=== PATIENT | female | born 1965 | race Caucasian/White ===

== ENCOUNTER 2017-09-05 15:13 | Emergency (ER) | payer BC ==
[2017-09-05 17:31] VITALS: BP 127/77
--- NOTE | 2017-09-05 17:51 | UC ---
Shoulder Pain HPI - HPI Summary HPI Summary: Patient has had severe right shoulder pain for 24 hours. does not remember any trauma or injury, injured her left shoulder a few months ago and has been using her right arm a lot more. no deformity noted - History of Current Complaint Chief Complaint: UCUpperExtremity Stated Complaint: RIGHT SHOULDER PAIN Time Seen by Provider: 09/05/17 17:28 Hx Obtained From: Patient Hx Last Menstrual Period: n/a ?: No Onset/Duration: Sudden Onset, Lasting Hours Timing: Constant Location Of Pain: Is Diffuse - over right shoulder Character: Aching, Stiffness Aggravating Factor(s): Movement - Allergies/Home Medications Allergies/Adverse Reactions: Allergies Allergy/AdvReac Type Severity Reaction Status Date / Time Cephalexin [From Keflex] Allergy Intermediate Hives Verified 09/05/17 17:32 PMH/Surg Hx/FS Hx/Imm Hx Previously Healthy: Yes - Surgical History Surgical History: Yes Surgery Procedure, Year, and Place: uterine ablation. gallbladder 2009. 2 c- sections - Family History Known Family History: Positive: None Negative: Cardiac Disease, Hypertension - Social History Alcohol Use: Occasionally Substance Use Type: None Smoking Status (MU): Never Smoked Tobacco Review of Systems Constitutional: Negative Skin: Negative Eyes: Negative ENT: Negative Respiratory: Negative Cardiovascular: Negative Gastrointestinal: Negative Genitourinary: Negative Motor: Negative Neurovascular: Negative Musculoskeletal: Arthralgia, Decreased ROM, Myalgia Neurological: Negative Is Patient Immunocompromised?: No All Other Systems Reviewed And Are Negative: Yes Physical Exam Triage Information Reviewed: Yes Appearance: Well-Appearing, Well-Nourished, Pain Distress Vital Signs: Initial Vital Signs Temp 97.6 F 09/05/17 17:25 Pulse 65 09/05/17 17:25 Resp 14 09/05/17 17:25 BP 127/77 09/05/17 17:25 Pulse Ox 100 09/05/17 17:25 Vital Signs Reviewed: Yes Eye Exam: Normal ENT Exam: Normal Dental Exam: Normal Neck exam: Normal Respiratory Exam: Normal Cardiovascular Exam: Normal Abdominal Exam: Normal Bowel Sounds: Positive: Present Musculoskeletal: Positive: Strength Intact, ROM Intact - in alldirections, No Edema Neurological Exam: Normal Psychological Exam: Normal Skin Exam: Normal Shoulder Course/Dx - Course Course Of Treatment: hx obtained, exam performed ,meds reviewed, xray obtained. sling and toradol given. referred to Ortho. - Differential Dx/Diagnosis Differential Diagnosis/HQI/PQRI: Dislocation, Rotator Cuff Injury, Sprain, Strain, Tendonitis Provider Diagnoses: tendonitis of the right shoulder Discharge - Discharge Plan Condition: Stable Disposition: HOME Prescriptions: Meloxicam(NF) [Mobic(NF)] 7.5 mg PO BID #28 tab Patient Education Materials: Calcific Tendinitis (ED) Referrals: Ld Lopez MD [Primary Care Provider] - Eliel Resendez MD [Medical Doctor] - Additional Instructions: 1. you were given a shot of toradol tonight. 2. Start tht Meloxicam in the morning. 3. follow up with Dr resendez office.
--- NOTE | 2017-09-05 18:12 | RAD ---
INDICATION: Right shoulder pain. TECHNIQUE: 4 views of the right shoulder were obtained. FINDINGS: The bones are in normal alignment. No fracture is seen. There are small calcifications adjacent to the superior lateral aspect of the humeral head suggestive of calcific tendinitis. There is mild osteoarthritic change in the glenohumeral joint. IMPRESSION: FINDINGS SUGGESTIVE OF CALCIFIC TENDINITIS.
[2017-09-05] MEDS ORDERED: Ketorolac INJ* 60 MG/2 ML VIAL IM ONE (18:23)
== END 2017-09-05 18:46 | disposition home or self-care (01) ==
LOC: UCCORT 15:13
DX: M65.811 Other synovitis and tenosynovitis, right shoulder (principal); Z88.1 Allergy status to other antibiotic agents
CPT/HCPCS: 96372; 99213; G0463; J1885

== ENCOUNTER 2017-12-14 14:02 | Emergency (ER) | payer BC ==
--- OUTSIDE RECORDS SUMMARY | 2017-12-14 14:25 | XMS REPORT ---
:1965 External Reference #:[id number] Author Organization [facility] Address [address] [address] Phone [phone] Care Team Providers Name Role Phone Ld Lopez MD Primary Care Physician Unavailable Payers Type Date Identification Numbers Payment Provider Subscriber Commercial Policy Number: [id number] [employer] Jayde Singh PayID: [id number] [address] [address] [place] [address] Workers Compensation Onset: 2016 Policy Number: Kaleb Singh [id number] Group Number: [id number] [address] Group Name: Laurent [phone] [place] [address] PayID: [id number] Workers Compensation Expires: 2017 Policy Number: Kaleb Singh [id number] Onset: 2016 PayID: [id number] [address] [place] [address] Problems Description No Information Family History Date Family Member(s) Problem(s) Comments General Heart Disease General Hypertension General Cancer Father Coronary Artery Disease (CAD) Mother due to Breast Cancer () Social History Type Date Description Comments Marital Status 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 Cigarette Use Never Smoked Cigarettes ETOH Use Occasionally consumes alcohol Recreational Drug Use Denies Drug Use Smoking Patient has never smoked Daily Caffeine Consumes on average 2 cups of regular coffee per day Daily Caffeine Consumes on average 8oz of iced tea per day Daily Caffeine consumes 8oz of chocolate per day Exercise Type/Frequency Exercises sporadically Allergies, Adverse Reactions, Alerts Date Description Reaction Status Severity Comments 03/09/2017 Cephalexin active 09/08/2017 Seasonal active Medications Medication Date Status Form Strength Qnty SIG Indications Ordering Provider Zofranali 00// Active Tablets 4mg take 1 by Unknown 0000 mouth twice a day as needed for nausea Duloxetine HCL / Active Caps DR 60mg 1 by mouth Unknown 0000 Part every day Buspirone HCL / Active Tablets 10mg take 1 by Unknown 0000 mouth two times a day Oxybutynin / Active Tablets ER 10mg 1 by mouth Unknown Chloride ER 0000 24HR every day Proair HFA / Active Aerosol 108(90Base 2 puffs by Unknown 0000 ) mcg/Act mouth every 4 hours as needed Multivitamins / Active Capsules 1 by mouth Unknown 0000 every day Vitamin D2 / Active Tablets 2000Unit 1 by mouth Unknown 0000 everyday Qvar / Active Aerosol 40mcg/Act 2 puff Unknown 0000 twice a day prn Metaxalone / Active Tablets 800mg take 1 Unknown 0000 tablet 3 times a day as needed Toprol XL / Active Tablets ER 25mg 1 by mouth Unknown 0000 24HR every day Loratadine / Active Capsules 10mg 1 by mouth Unknown 0000 every night at bedtime Ibuprofen / Active Tablets 800mg by mouth Unknown 0000 three times a day as needed Meloxicam / Active Tablets 7.5mg 1 po bid Unknown 0000 Lorazepam / Active Tablets 2mg 1/2 to 1 Digiovanna 0000 tab po , Ld, bid prn MD Joya / Active Powder [id number] Wash And Unknown 0000 /GM Dry Skin Then Apply Three Times A Day To Skin Fold Rash Unti Fluocinonide / Active Ointment 0.05% applies to Antwan, 0000 affected MD Alberto area prn Triamcinolone / Active Cream 0.5% applies to Digiovanna Acetonide 0000 affected , area prn SHANDA Eisenberg Lorazepam / Hx Tablets 2mg 1 tab Unknown 0000 - every 6 10/09/ hours up 2016 to three times daily as needed for flying Omeprazole 00/00/ Hx Capsules 20mg 1 by mouth Unknown 0000 - DR every day 2016 Ibuprofen /00/ Hx Capsules 200mg as needed Unknown 0000 - 2016 Metoprolol / Hx Tablets ER 25mg Digiovanna Succinate ER 0000 - 24HR , Ld 2016 Medications Administered in Office Medication Date Status Form Strength Qnty SIG Indications Ordering Provider Depomedrol Administered Injection Tyra 40MG 018 Jordana Betancourt Celestone 3 Administered Injection Eliel M mg and 3mg 017 MD Mal Celestone 3 Administered Injection Eliel M mg and 3mg 017 MD Mal Vital Signs Date Vital Result Comment 12/02/2017 Height 68 inches 5'8" Body Temperature 97.8 F Pain Level 0 10/22/2017 Height 68 inches 5'8" Weight 263.00 lb w/ shoes Heart Rate 66 /min reg BP Systolic Sitting 128 mmHg Rue, lg cuff BP Diastolic Sitting 86 mmHg Rue, lg cuff Respiratory Rate 16 /min Body Temperature 97.1 F tympanic Pain Level 5 left arm BMI (Body Mass Index) 40.0 kg/m2 09/08/2017 Height 68 inches 5'8" Heart Rate 67 /min BP Systolic Sitting 120 mmHg BP Diastolic Sitting 76 mmHg Respiratory Rate 16 /min Pain Level 3 O2 % BldC Oximetry 97 % 09/02/2017 Height 68 inches 5'8" Weight 257.00 lb Heart Rate 64 /min BP Systolic 125 mmHg BP Diastolic 84 mmHg Body Temperature 97.2 F BMI (Body Mass Index) 39.1 kg/m2 06/17/2017 Height 66.25 inches 5'6.25" Weight 240.00 lb Heart Rate 76 /min BP Systolic 126 mmHg BP Diastolic 76 mmHg Respiratory Rate 16 /min BMI (Body Mass Index) 38.4 kg/m2 05/14/2017 Height 66.25 inches 5'6.25" Weight 240.00 lb Heart Rate 74 /min BP Systolic 124 mmHg BP Diastolic 74 mmHg Respiratory Rate 16 /min Pain Level 4 did not take ibu BMI (Body Mass Index) 38.4 kg/m2 03/09/2017 Height 66.25 inches 5'6.25" Weight 253.00 lb Heart Rate 76 /min BP Systolic 114 mmHg BP Diastolic 82 mmHg Respiratory Rate 20 /min Pain Level 4 BMI (Body Mass Index) 40.5 kg/m2 Results Description No Information Procedures Date CPT Code Description Status 09/08/2017 Inject/Drain Joint/Bursa Major Completed 05/14/2017 Injection Single Tendon Origin/Insertion Completed 12/04/2016 41516 Nerve Conduction, Sensory Completed 12/04/2016 84898 Nerve Conduction, Motor W/F-Wave Study Completed 12/04/2016 47524 Needle Electromyography Complete, Five Or More Muscles Completed Studied Encounters Type Date Location Provider CPT E/M Dx Office Visit 10/22/2017 [facility] Tyra Betancourt, [address] W54.0xxD 9:30a [facility] S51.852D Office Visit 09/08/2017 11:30a [place] [address] M75.31 Of [facility] Office Visit 09/02/2017 3:00p [facility] Tyra Betancourt [address] S51.852A Of [facility] W54.0xxA S51.832S Office Visit 06/17/2017 11:30a [place] [address] S51.832S Of [facility] W54.0xxS M79.622 Office Visit 05/14/2017 10:30a [place] [address] S51.832D Of [facility] W54.0xxD M79.632 Office Visit 03/09/2017 11:00a [place] [address] S51.832S Of [facility] W54.0xxS M79.632 Plan of Care 10/22/2017 - Tyra Betancourt M.D.W54.0xxD Bitten by dog, subsequent encounterFollow up:Follow up: after testing is [id number] Open bite of left forearm, subsequent encounter
[2017-12-14 14:27] VITALS: BP 118/82
--- NOTE | 2017-12-14 14:32 | UC ---
Throat Pain/Nasal Ramos HPI - HPI Summary HPI Summary: Pt presents to with congestion, sore throat, cough and wheeze. 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 Pt with exposure to flu and RSV. Pt states has been feeling tight cough and wheeze in chest. Pt has used albuterol MDI with improvement. Pt has also tried OTC Theraflu, Sudafed. No fevers, chills, rash. No PURCELL, vision changes. + congestion + sore throat + pnd + ear congestion L>R Pt did get flu vaccine this year Never hospitalized for asthma. Last pred > 1 year Pt's medications reviewed this visit - History of Current Complaint Chief Complaint: UCRespiratory Stated Complaint: COUGH CONGESTION SORE THROAT Time Seen by Provider: 12/14/17 14:30 Hx Obtained From: Patient Hx Last Menstrual Period: n/a Cough: Nonproductive Associated Signs & Symptoms: Positive: Wheezing, Sinus Discomfort, Nasal Discharge - Allergies/Home Medications Allergies/Adverse Reactions: Allergies Allergy/AdvReac Type Severity Reaction Status Date / Time Cephalexin [From Keflex] Allergy Intermediate Hives Verified 12/14/17 14:26 Home Medications: Home Medications DULoxetine DR CAP* [Cymbalta CAP*] 60 mg PO DAILY 12/14/17 [History Confirmed ] PMH/Surg Hx/FS Hx/Imm Hx Previously Healthy: Yes Respiratory History: Asthma - Surgical History Surgical History: Yes Surgery Procedure, Year, and Place: uterine ablation. gallbladder 2009. 2 c- sections - Family History Known Family History: Positive: None Negative: Cardiac Disease, Hypertension - Social History Alcohol Use: Occasionally Substance Use Type: None Smoking Status (MU): Never Smoked Tobacco Review of Systems ENT: Ear Ache, Nasal Discharge, Sinus Congestion Respiratory: Cough All Other Systems Reviewed And Are Negative: Yes Physical Exam Triage Information Reviewed: Yes Appearance: Well-Appearing, No Pain Distress, Well-Nourished Vital Signs: Initial Vital Signs Temp 98.3 F 12/14/17 14:21 Pulse 72 12/14/17 14:21 Resp 18 12/14/17 14:21 BP 118/82 12/14/17 14:21 Pulse Ox 99 12/14/17 14:21 Vital Signs Reviewed: Yes Eye Exam: Normal Eyes: Positive: Conjunctiva Clear ENT Exam: Normal ENT: Positive: Hearing grossly normal, Pharyngeal erythema, Nasal congestion, Uvula midline, Other - mild fluid left ear no fluid right no erythema, no retraction. Negative: Sinus tenderness Dental Exam: Normal Neck exam: Normal Neck: Positive: Supple, Nontender, No Lymphadenopathy Respiratory Exam: Normal Respiratory: Positive: Chest non-tender, No respiratory distress, No accessory muscle use, Wheezing, Other: - few, scattered wheeze, no rhonchi intermittent coarse cough no accessory muscle use no retractions. Negative: Respiratory distress Cardiovascular Exam: Normal Cardiovascular: Positive: RRR, No Murmur, Pulses Normal Abdominal Exam: Normal Abdomen Description: Positive: Nontender, No Organomegaly, Soft Bowel Sounds: Positive: Present Musculoskeletal Exam: Normal Musculoskeletal: Positive: Strength Intact Neurological Exam: Normal Neurological: Positive: Alert Psychological Exam: Normal Psychological: Positive: Normal Response To Family Skin Exam: Normal Re-Evaluation - Re-Evaluation First Eval Comment: neg influenza, rsv, strep. hydrate. secretion precautions. abx. mdi /albuterol. pred. floanse. work note Throat Pain/Nasal Course/Dx - Course Course Of Treatment: Pt presents with 3-4 days progressive cough, wheeze, congestion. Little relief with OTC meds. will check for flu, strep and RSV given exposures. pending results: tamiflu vs abx for strep. refill albuterol nebules. flonase. pred. return precautions. secretion precaution - Differential Dx/Diagnosis Provider Diagnoses: cough, wheeze Discharge - Discharge Plan Condition: Stable Disposition: HOME Prescriptions: Albuterol 2.5MG/3ML (0.083%)* [Ventolin 2.5 MG/3 ML NEB.JERILYN*] 2.5 mg INH Q4H # 30 neb.jerilyn Azithromycin TAB* [Zithromax TAB (Z-ALEC) 250 mg #6 tabs] 2 tab PO .TODAY, THEN 1 DAILY #1 alec Fluticasone NASAL SPRAY 50MCG* [Flonase NASAL SPRAY 50MCG*] 2 spray BOTH NARES DAILY #1 btl predniSONE TAB* [Deltasone TAB*] 50 mg PO DAILY #5 tab Patient Education Materials: Acute Bronchitis (ED) Forms: *Work Release Referrals: Ld Lopez MD [Primary Care Provider] - Additional Instructions: - Stay well hydrated. Drink plenty of non-alcoholic, non-caffinated beverages - take antibiotics 2 times a day as prescribed - USe inhaler or nebulizer- 2 puffs every 4 hours today, then every 4 hours as needed - Take prednisone once daily x 5 days - Okay to use nasal spray as prescribed - swish and spit to clean mouth following nasal spray - Okay to use over the counter medication for cough - After you have been on antibiotics for 2 days - change your toothbrush and your pillowcase. These infections are spread by secrtions - do NOT share eating or drinking utensils - clean items you share with other people such as iphone, computer mouse, TV remote, etc - humidify the air in the room where you sleep - boil water, run hot steam shower, cups of water by heat vent - Alternate ibuprofen (Advil, motrin) 600mg and tylenol every 3 hours for pain or fever. - Call your doctor or return with any questions or concerns
== END 2017-12-14 15:32 | disposition home or self-care (01) ==
LOC: UCCORT 14:02
DX: R05 Cough (principal); R06.2 Wheezing; Z72.89 Other problems related to lifestyle; J45.909 Unspecified asthma, uncomplicated
CPT/HCPCS: 87502; 87651; 99212; G0463

== ENCOUNTER 2018-01-20 15:25 | Emergency (ER) | payer BC ==
--- NOTE | 2018-01-20 16:55 | RAD ---
INDICATION: Pain and swelling. COMPARISON: None TECHNIQUE: Duplex interrogation of the right lowerextremity was performed. FINDINGS: Deep veins: The common femoral, great saphenous, profunda femoris, proximal, mid, and distal deep femoral, popliteal, posterior tibial, and peroneal veins are patent. There is normal compressibility, augmentation, and phasic flow. Superficial veins: There are no findings of superficial thrombophlebitis. Popliteal fossa:There is no evidence of a popliteal cyst. Soft tissues:There are no soft tissue abnormalities. IMPRESSION: Normal examination. No evidence of deep venous thrombosis
[2018-01-20 17:53] VITALS: BP 157/101
--- NOTE | 2018-01-20 18:13 | ED ---
Lower Extremity - HPI Summary HPI Summary: Patient is an otherwise healthy 51-year-old female who presents to the ED with pain in the right lower extremity most involving the calf and swelling to the right ankle. She denies any injury. History of varicose veins and has had this type of pain before, but this was sudden in onset. She endorses slight swelling, but denies any erythema or warmth. Denies numbness, tingling. Denies chest pain, shortness of breath, headache, dizziness. She denies any recent travel, OCP use or smoking history. Symptoms are aggravated by nothing and relieved with nothing. - History of Current Complaint Chief Complaint: EDExtremityLower Stated Complaint: RT LEG AND FT PAIN/SWOLLEN Time Seen by Provider: 01/20/18 15:52 Hx Obtained From: Patient Hx Last Menstrual Period: n/a Onset of Pain: Immediate Onset/Duration: Hours Severity Initially: Moderate Severity Currently: Moderate Pain Intensity: 7 Pain Scale Used: 0-10 Numeric Timing: Constant Location: Is Discrete @ - Right lower extremity Character Of Pain: Aching Associated Signs And Symptoms: Positive: Swelling. Negative: Redness, Bruising , Fever, Weakness, Dizziness Aggravating Factor(s): Standing, Ambulation, Movement, Weight Bearing Alleviating Factor(s): Rest Able to Bear Weight: Yes - Risk Factors Gout Risk Factors: Negative DVT Risk Factors: Negative Septic Arthritis Risk Factor: Negative - Allergies/Home Medications Allergies/Adverse Reactions: Allergies Allergy/AdvReac Type Severity Reaction Status Date / Time cephalexin [From Keflex] Allergy Intermediate Hives Verified 01/20/18 15:31 PMH/Surg Hx/FS Hx/Imm Hx Previously Healthy: Yes Respiratory History: Reports: Hx Asthma - Surgical History Surgery Procedure, Year, and Place: uterine ablation. gallbladder 2009. 2 c- sections - Immunization History Hx Pertussis Vaccination: No Immunizations Up to Date: Unable to Obtain/Confirm Infectious Disease History: No Infectious Disease History: Denies: Hx Clostridium Difficile, Hx Hepatitis, Hx Human Immunodeficiency Virus (HIV), Hx of Known/Suspected MRSA, Hx Shingles, Hx Tuberculosis, Hx Known/ Suspected VRE, Hx Known/Suspected VRSA, History Other Infectious Disease, Traveled Outside the [place] in Last 30 Days - Family History Known Family History: Positive: None Negative: Cardiac Disease, Hypertension - Social History Occupation: Employed Full-time Lives: With Family Alcohol Use: Occasionally Hx Substance Use: No Substance Use Type: Reports: None Hx Tobacco Use: No Smoking Status (MU): Never Smoked Tobacco Do You Chew or Dip Tobacco: No Have You Chewed or Dipped Tobacco in the LAST YEAR: No Review of Systems Constitutional: Negative Negative: Fever, Chills, Fatigue, Skin Diaphoresis ENT: Negative Gastrointestinal: Negative Genitourinary: Negative Positive: no symptoms reported, see HPI Positive: Myalgia - should watch the cadaver pain is Skin: Negative Neurological: Negative All Other Systems Reviewed And Are Negative: Yes Physical Exam Triage Information Reviewed: Yes Vital Signs On Initial Exam: Initial Vitals Temp Pulse Resp BP Pulse Ox 98.7 F 79 16 137/104 97 01/20/18 15:27 01/20/18 15:27 01/20/18 15:27 01/20/18 15:27 01/20/18 15:27 Vital Signs Reviewed: Yes Appearance: Positive: Well-Appearing, Well-Nourished Skin: Positive: Skin Color Reflects Adequate Perfusion Head/Face: Positive: Normal Head/Face Inspection Eyes: Positive: EOMI, BEN, Conjunctiva Clear Neck: Positive: Supple, No Lymphadenopathy Respiratory/Lung Sounds: Positive: Clear to Auscultation, Breath Sounds Present Cardiovascular: Positive: RRR, Pulses are Symmetrical in both Upper and Lower Extremities Musculoskeletal: Positive: Normal, Strength/ROM Intact Neurological: Positive: Speech Normal Psychiatric: Positive: Normal, Affect/Mood Appropriate - On the Diagnostics - Vital Signs Vital Signs Temp Pulse Resp BP Pulse Ox 01/20/18 17:51 98.3 F 60 16 157/101 97 01/20/18 15:27 98.7 F 79 16 137/104 97 - Laboratory Lab Statement: Any lab studies that have been ordered have been reviewed, and results considered in the medical decision making process. Lower Extremity Course/Dx - Course Course Of Treatment: During Eyes Were Drawn the course of treatment patient is evaluated for a possible right lower extremity DVT. On ultrasound there was no evidence of DVT or other findings. Patient is made aware and is okay with discharge. I've advised she use moist heat to the back of the leg as well as stretches. I have given her referral to our vascular physician Dr. Rainey to which she is going to make an appointment. She denies any other concerns at this time is okay for discharge. - Diagnoses Differential Diagnosis/HQI/PQRI: Positive: DVT Provider Diagnoses: Muscle cramp Discharge - Discharge Plan Condition: Stable Disposition: HOME Patient Education Materials: Leg Cramps (ED) Referrals: Ld Lopez MD [Primary Care Provider] - Anthony Rainey MD [Medical Doctor] - Additional Instructions: If you continue to have leg cramps, add magnesium glycinate 400 mg at bedtime Moist heat to the area Ibuprofen 600 mg 3 times daily
== END 2018-01-20 17:56 | disposition home or self-care (01) ==
LOC: ED 15:25
DX: R25.2 Cramp and spasm (principal)
CPT/HCPCS: 99282

== ENCOUNTER 2018-06-02 18:26 | Emergency (ER) | payer BC ==
[2018-06-02 19:17] VITALS: BP 122/90
--- NOTE | 2018-06-02 19:29 | UC ---
Knee Pain HPI - HPI Summary HPI Summary: Pt c/o right knee pain after doing twisting motion with left leg stationary and then heard a "pop" and onset of pain. Pt states that pain worsens with certain movements such as walking up stairs and prolonged standing. - History of Current Complaint Chief Complaint: UCLowerExtremity Stated Complaint: RIGHT KNEE INJURY Time Seen by Provider: 06/02/18 19:10 Hx Obtained From: Patient Hx Last Menstrual Period: n/a ?: No Onset/Duration: Sudden Onset, Lasting Days, Worse Since - onset Severity Initially: Moderate Severity Currently: Moderate Pain Intensity: 7 Character: Sharp - with certain movements, Dull, Aching Aggravating Factor(s): Weight Bearing, Prolonged Standing, Stairs Alleviating Factor(s): Rest, Position Associated Signs And Symptoms: Positive: Swelling Able to Bear Weight: Yes - Risk Factors Septic Arthritis Risk Factor: Negative Gout Risk Factor: Age ^ 39, Obesity - Allergies/Home Medications Allergies/Adverse Reactions: Allergies Allergy/AdvReac Type Severity Reaction Status Date / Time cephalexin [From Keflex] Allergy Intermediate Hives Verified 01/20/18 15:31 Home Medications: Home Medications Albuterol inh POWDER (NF) [Proair Respiclick] 1 puff INH DAILY 06/02/18 [ History Confirmed 06/02/18] Beclomethasone 40 MCG MDI(NF) [Qvar 40 MCG MDI(NF)] 2 puff INH DAILY 06/02/18 [ History Confirmed 06/02/18] PMH/Surg Hx/FS Hx/Imm Hx Previously Healthy: Yes - Surgical History Surgical History: Yes Surgery Procedure, Year, and Place: uterine ablation. gallbladder 2009. 2 c- sections - Family History Known Family History: Positive: None Negative: Cardiac Disease, Hypertension - Social History Occupation: Employed Full-time Lives: With Family Alcohol Use: Occasionally Substance Use Type: None Smoking Status (MU): Never Smoked Tobacco Have You Smoked in the Last Year: No Review of Systems Constitutional: Negative Skin: Negative Eyes: Negative ENT: Negative Respiratory: Negative Cardiovascular: Negative Gastrointestinal: Negative Genitourinary: Negative Motor: Negative Neurovascular: Negative Musculoskeletal: Arthralgia - right knee, Edema - right knee, Myalgia Neurological: Negative Psychological: Negative Is Patient Immunocompromised?: No All Other Systems Reviewed And Are Negative: Yes Physical Exam Triage Information Reviewed: Yes Appearance: Well-Appearing Vital Signs: Initial Vital Signs Temp 97.8 F 06/02/18 19:10 Pulse 83 06/02/18 19:10 Resp 16 06/02/18 19:10 BP 122/90 06/02/18 19:10 Pulse Ox 100 06/02/18 19:10 Vital Signs Reviewed: Yes Eye Exam: Normal ENT: Positive: Hearing grossly normal Dental Exam: Normal Neck exam: Normal Respiratory: Positive: Normal breath sounds, No respiratory distress Musculoskeletal Exam: Other Musculoskeletal: Positive: Other: - negative drawer test, slight laxity with valgus and varus test right knee Neurological Exam: Normal Psychological Exam: Normal Skin Exam: Normal Knee Pain Course/Dx - Differential Dx/Diagnosis Differential Diagnosis/HQI/PQRI: Internal Derangement Of Knee, Sprain, Strain Provider Diagnoses: right knee pain Discharge - Sign-Out/Discharge Documenting (check all that apply): Patient Departure - Discharge Plan Condition: Stable Disposition: HOME Patient Education Materials: Knee Pain (ED) Referrals: Ld Lopez MD [Primary Care Provider] - If Needed Eliel Resendez MD [Medical Doctor] - If Needed - Billing Disposition and Condition Condition: STABLE Disposition: Home
== END 2018-06-02 19:38 | disposition home or self-care (01) ==
LOC: UCCORT 18:26
DX: M25.561 Pain in right knee (principal); R60.0 Localized edema; Z88.1 Allergy status to other antibiotic agents
CPT/HCPCS: 99211; G0463

== ENCOUNTER 2018-11-23 12:50 | Emergency (ER) | payer BC ==
[2018-11-23 13:03] VITALS: BP 134/90
--- OUTSIDE RECORDS SUMMARY | 2018-11-23 13:14 | XMS REPORT ---
:1965 Author Organization [facility] Address [address] [place] [address] Care Team Providers Name Role Phone Nessa Bolaños Unavailable Unavailable PROBLEMS Type Condition ICD9-CM Code SMT04-NQ Code Onset Condition SNOMED Code Dates Status Problem Excessive and N92.0 Active 728832620 frequent menstruation with regular cycle Problem Body mass index Z68.41 Active 912676812 (BMI) 40.0-44.9, adult Problem Menopausal and N95.1 Active 384151143 female climacteric states Problem Family history of Z80.3 Active 482711832 malignant neoplasm of breast ALLERGIES Substance Reaction Event Type Date Status Keflex hives Drug Allergy Oct, Active ENCOUNTERS Encounter Location Date Diagnosis [facility] [address] Oct, [place]BGYN [place], [place] [id number] [facility] 103 Oct, [place]BG[place] [id number] [facility] 103 Aug, [place]BG[place] [id number] [facility] 103 Jun, [place] [id number] [facility] 103 Jun, [place], [place] [id number] [facility] 103 May, [place] [id number] [facility] 103 May, [place] [id number] [facility] May, [place] [id number] [facility] 103 May, Family history of malignant [facility] neoplasm of breast Z80.3 [place], [place] [id number] [facility] May, [place] [id number] [facility] 103 March, [place] [id number] [facility] 103 March, Secondary amenorrhea N91.1 [facility] and Family history [place], [place] [id number] malignant neoplasm of breast Z80.3 [facility] 103 March, Secondary amenorrhea N91.1 [facility] ; Body mass index (BMI) [place], [place] [id number] 40.0-44.9, adult Z68.41 and Excessive and frequent menstruation with regular cycle N92.0 [facility] Feb, [place], [place] [id number] [facility] 103 Nov, [place] [id number] [facility] 103 Nov, Secondary amenorrhea N91.1 [facility] and Morbid (severe) obesity [place], [place] [id number] due to excess calories E66.01 [facility] 103 Nov, Menopausal and female [facility] climacteric states N95.1 ; [place], [place] [id number] Benign endometrial hyperplasia N85.01 ; Secondary amenorrhea N91.1 and Other general symptoms and signs R68.89 [facility] 103 Sep, OBG[place] [id number] [facility] 103 Aug, Secondary [facility]orrhea N91.1 [facility] and Body mass index (BMI) [place], [place] [id number] 40.0-44.9, adult Z68.41 [facility] [facility] 103 Aug, Menopausal and female [facility] climacteric states N95.1 [place], [place] [id number] and Other general symptoms and signs R68.89 [facility] [facility] 103 Aug, Family history of malignant [facility] neoplasm of breast Z80.3 ; [place], [place] [id number] Encounter for gynecological examination (general) (routine) without abnormal findings Z01.419 ; Encounter for screening mammogram for malignant neoplasm of breast Z12.31 ; Encounter for screening for malignant neoplasm of colon Z12.11 ; Menopausal and female climacteric states N95.1 and Benign endometrial hyperplasia N85.01 [place] [facility] 103 Jun, OBG[place] [id number] [facility] 103 Jun, [place]BG[place] [id number] [facility] 103 Jan, [place] [id number] [facility] 103 Jan, Family history of malignant [facility] neoplasm of breast Z80.3 [place], [place] [id number] [facility] 103 Aug, [place]BG[place] [id number] [facility] 103 Aug, [place] [id number] [facility] 103 Jun, Encounter for gynecological [facility] examination (general) [place], [place] [id number] (routine) without abnormal findings Z01.419 ; Encounter for screening mammogram for malignant neoplasm of breast Z12.31 ; Encounter for screening for malignant neoplasm of colon Z12.11 and Family history of malignant neoplasm of breast Z80.3 [facility] [facility] 103 28 Apr, [address] [facility] examination (general) [place], [place] [id number] (routine) without abnormal findings Z01.419 ; Encounter for screening mammogram for malignant neoplasm of breast Z12.31 ; Encounter for screening for malignant neoplasm of colon Z12.11 and Family history of malignant neoplasm of breast Z80.3 [place] [facility] 103 Nov, [place] [id number] [facility] 103 Jul, FAMILY HX-BREAST MALIG [facility] V16.3 [place], [place] [id number] [facility] 103 Jun, [place] [id number] [facility] [facility] 103 May, [place] [id number] [facility] 103 Dec, [place] [id number] [facility] 103 Dec, ABN CLINICAL FINDING NEC [facility] 796.4 and Body Mass Index [place], [place] [id number] 40.0-44.9, adult V85.41 [facility] 103 Dec, ABN CLINICAL FINDING NEC 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 V72.31 ; PAP SMEAR W/O ADULT MINISTRIES DIRECTOR [place], [place] [id number] EXAM V76.2 ; SCREEN MAMMOGRAM NEC V76.12 ; Nonspecific abnormal findings on examination of genitourinary organs 793.5 and Body Mass Index 40.0-44.9, adult V85.41 [facility] [facility] 103 Dec, [place]BG[place] [id number] [facility] 103 Dec, [place], [place] [id number] [facility] 103 Oct, FAMILY HX-BREAST MALIG O[facility] V16.3 [place], [place] [id number] [facility] 103 March, FAMILY HX-BREAST MALIG [facility] V16.3 and 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 DIRECTOR [place], [place] [id number] EXAMINATION V72.31 [place] [facility] 103 Jul, [place] [id number] [facility] 103 Jul, Menometrorrhagia 626.2 ; OBGYN [facility] FAMILY HX-BREAST MALIG [place], [place] [id number] V16.3 and PELVIC PAIN 625.9 [place] [facility] 103 March, Menometrorrhagia 626.2 [place] [id number] [facility] 103 March, Menometrorrhagia 626.2 [place] [id number] [facility] 103 March, Menometrorrhagia 626.2 [place] [id number] [facility] 103 Feb, [place] [id number] [facility] 103 Feb, 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 OBGYN [facility] V72.31 and Menorrhagia [place], [place] [id number] 626.2 [facility] [facility] 103 Nov, [place]BG[place], [place] [id number] [facility] 103 Nov, Menometrorrhagia 626.2 and OBGYN [facility] Enlarged uterus 621.2 [place], [place] [id number] [facility] 103 30 Jul, 2010 Menometrorrhagia 626.2 ; OBGYN [facility] Endometrial polyp 621.0 ; [place], [place] [id number] Enlarged uterus 621.2 and FAMILY HX-BREAST MALIG V16.3 [facility] [address] [place] [place] [id number] [facility] [facility] 103 Jul, Menometrorrhagia 626.2 ; OBGYN [facility] Endometrial polyp 621.0 and [place], [place] [id number] Enlarged uterus 621.2 [place] [facility] 103 May, Menometrorrhagia 626.2 ; OBGYN [facility] Endometrial polyp 621.0 and [place], [place] [id number] Enlarged uterus 621.2 [place] [facility] 103 May, Menometrorrhagia 626.2 [place] [id number] [facility] 103 May, Menometrorrhagia 626.2 [place] [id number] [facility] [facility] 103 May, Menometrorrhagia 626.2 and OBGYN [facility] Endometrial polyp 621.0 [place], [place] [id number] [facility] [facility] 103 Apr, PELVIC PAIN 625.9 and OBGYN [facility] Menometrorrhagia 626.2 [place], [place] [id number] [facility] [facility] 103 Apr, PELVIC PAIN 625.9 [place] [id number] [facility] [facility] 103 Apr, [place], [place] [id number] [facility] 103 Nov, [place], [place] [id number] [facility] 103 08 Nov, 2009 OBGYN [place] [id number] [facility] 103 May, 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 OBGYN [facility] V72.31 [place], [place] [id number] [facility] [facility] 103 14 May, 2008 OBG[place] [id number] [facility] 103 May, [place]BG[place], [place] [id number] [facility] 103 Jan, Telangiectasia, OBGYN [facility] telangiectasis 448.9 [place], [place] [id number] [facility] 103 Jan, [place] [id number] [facility] [facility] 103 Jan, [place] [id number] [facility] [facility] 103 Nov, [place] [id number] [facility] 103 Nov, [place], [place] [id number] [facility] 103 Nov, Ovarian cyst NOS 620.2 [place] [id number] [facility] [facility] 103 Oct, [place] [id number] [facility] 103 Aug, Ovarian cyst NOS 620.2 [place] [id number] [facility] 103 Aug, Ovarian cyst NOS 620.2 [place] [id number] [facility] 103 Jun, Ovarian cyst NOS 620.2 and OBGYN [facility] Polymenorrhea 626.2 [place], [place] [id number] [facility] 103 Jun, Enlarged uterus 621.2 [place], [place] [id number] [facility] [facility] 103 Jun, [place] [id number] [facility] 103 Jun, [place], [place] [id number] [facility] 103 Jun, [place] [id number] [facility] 103 Jun, 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 [facility] V72.31 ; Urinary frequency [place], [place] [id number] 788.41 and Enlarged uterus 621.2 [facility] 103 March, Telangiectasia, [facility] telangiectasis 448.9 [place], [place] [id number] IMMUNIZATIONS No Known Immunizations SOCIAL HISTORY Never Assessed REASON FOR REFERRAL FUNCTIONAL STATUS PLAN OF CARE Activity Details Pending Test SCREENING MAMMOGRAM BILATERAL Pending Test OCCULT BLOOD SCREEN 1-3 VITAL SIGNS MEDICATIONS Medication Instructions Dosage Frequency Start End Duration Status Date Date Albuterol 2 puffs Unknown inhaler metoprolol 25 mg orally once a 1 tab(s) 24h 30 day(s) Unknown day oxybutynin 10 orally once a 1 tab(s) 24h Unknown mg/24 hr day multivitamin as 1 tab 24h Unknown directed Cymbalta 60 mg orally once a 1 cap(s) 24h Unknown day Diflucan 150 mg orally once 1 tab(s) Jun, dose(s) Unknown 2017 Ativan 1 mg orally 3 times a 1 tab(s) Unknown day prn Buspar 10mg 1tab 12h Unknown PROCEDURES Procedure Date Ordered Result Body Site Broken appointment without 24 hr notice Nov 01, 2018 RESULTS No Results REASON FOR VISIT annual, Pap Insurance Providers [facility] Patient Patient Patient Patient Patient Subscriber Subscriber Subscriber Group Insurance Plan Plan Plan Plan ID Relationship Address Phone Name Date of ID Name Date of No Type Insurance Insurance Insurance Coverage to Subscriber Address Phone Name Dates Merary [phone] Abhishekus self Jayde [id number] Nnamdi [id number] 5348 [place] Cross/Blue Shield [id number] Shield [place] [phone] Excell[place] self Jayde 1965 [id number] Blue [id number] 89 Blue Singh 1 [place]/Blue [place] Cross/Blue Shield [address] Shield [place] [phone] [place] self Jayde 1965 [id number] Blue [id number] 89 Blue Singh 4 [place] Cross/Blue Shield [address] Shield [place] [phone] [place] self Jayde 1965 [id number] Blue [phone] 89 Blue Singh 8 [place] Cross/Blue Shield [address] Shield [place] [phone] [employer] [id number] Jayde 1965 [id number] Blue [id number] 89 Blue [id number]: Singh 8 Cross/Blue [place] Cross/Blue [id number]:- Shield [id number] Shield [id number] [place] [phone] [employer] self Jayde 1965 Blue 56141 89 Blue Singh 9 [place]/Blue [place] Cross/Blue Shield [id number] Shield MEDICAL (GENERAL) HISTORY Type Description Date Medical History asthma Medical History MVP - doesn't need prophyalxis Medical History HTN Medical History BRCA neg Medical History Migraines w/ aura Medical History Anxiety/Depression Surgical History Varicose veins Surgical History nasal surgery Surgical History X2 Surgical History hysteroscopy D&C polypectomy 08/01/10 Surgical History Novasure 03-28-2011 Hospitalization History see above
--- OUTSIDE RECORDS SUMMARY | 2018-11-23 13:14 | XMS REPORT | Continuity of Care Document ---
:1965 External Reference #:[id number] Author Name Sol Bolaños Care Team Providers Name Role Phone Ld Lopez MD Primary Care Physician Unavailable Payers Type Date Identification Numbers Payment Provider Subscriber Policy Number: [id number] [employer] Jayde Singh PayID: [id number] [address] [address] [place] [address] Onset: 2016 Policy Number: [id number] [employer] Jayde Singh Group Number: [id number] [address] Group Name: [id number] [phone] [place] [id number] PayID: [id number] Expires: 2017 Policy Number: [id number] ers Jayde Singh Onset: 2016 PayID: [id number] [address] [place] [address] Advance Directives Description No Information Available Problems Date Description Provider Status Onset: 09/27/2018 Morbid obesity Suma Julian M.D. Active Onset: 09/27/2018 Localized, primary osteoarthritis Suma Julian M.D. 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 Tobacco Use Start: Unknown Never Smoked Cigarettes ETOH Use Occasionally consumes alcohol Recreational Drug Use Denies Drug Use Tobacco Use Start: Unknown Patient has never smoked Smoking Status Reviewed: 10/29/18 Patient has never smoked Exercise Type/Frequency Exercises sporadically Allergies, Adverse Reactions, Alerts Date Description Reaction Status Severity Comments 03/09/2017 Cephalexin Active 09/08/2017 Seasonal Active Medications Medication Date Status Form Strength Qnty SIG Indications Ordering Provider Meloxicam 09/27/ Active Tablets 15mg 30tab 1 by mouth M17.11 2017 s every day Jordana Julian Percocet 09/27/ Active Tablets 5-325mg 60tab 1-2 tabs by M25.561 2017 s mouth q8 as Eliel, needed pain M.D. Cane 09/27/ Active Misc 1unit use for 2017 s ambulation Eliel, - severe M.D. knee oa/ pain Duloxetine HCL / Active Caps DR 60mg 1 by mouth Unknown 0000 Part every day Oxybutynin / Active Tablets 10mg 1 by mouth Unknown Chloride ER 0000 ER 24HR every day Proair HFA / Active Aerosol 108(90Bas 2 puffs by Unknown 0000 e) mouth every mcg/Act 4 hours as needed Multivitamins / Active Capsules 1 by mouth Unknown 0000 every day Vitamin D2 / Active Tablets 2000Unit 1 by mouth Unknown 0000 everyday Qvar / Active Aerosol 40mcg/Act 2 puff Unknown 0000 twice a day prn Metaxalone / Active Tablets 800mg take 1 Unknown 0000 tablet 3 times a day as needed Toprol XL / Active Tablets 25mg 1 by mouth Unknown 0000 ER 24HR every day Loratadine / Active Capsules 10mg 1 by mouth Unknown 0000 every night at bedtime Lorazepam / Active Tablets 2mg 1/2 to 1 Digiovann 0000 tab po bid a, prn MD Ld Fluocinonide / Active Ointment 0.05% applies to [place], 0000 affected elsa Dominguez prantonio KIM CBD / Active as needed Unknown 0000 for anxiety Estroven Weight / Active Capsules 1 by mouth Unknown Management 0000 daily Phendimetrazine / Active Tablets 35mg 1 by mouth Unknown Tartrate 0000 twice a day Ibuprofen 09/16/ Hx Tablets 800mg 90tab 1 by mouth Eliel Momin 2017 - s three times Marson, 09/27/ a day seferino KIM 2018 food as needed pain and swelling Lorazepam / Hx Tablets 2mg 1 tab every Unknown 0000 - 6 hours up 08/31/ to three 2017 times daily as needed for flying Zofran / Hx Tablets 4mg take 1 by Unknown 0000 - mouth twice 06/03/ a day as 2018 needed for nausea Omeprazole / Hx Capsules 20mg 1 by mouth Unknown 0000 - DR every day 2016 Buspirone HCL / Hx Tablets 10mg takes 2 Unknown 0000 - tabs by 09/23/ mouth in 2018 A.M Ibuprofen / Hx Capsules 200mg as needed Unknown 0000 - 2016 Ibuprofen / Hx Tablets 800mg 90tab 1by mouth Unknown 0000 - s three times 09/15/ a day as 2018 needed Meloxicam / Hx Tablets 7.5mg 1 po bid Unknown 0000 - 2017 Metoprolol / Hx Tablets 25mg Digiovann Succinate ER 0000 - ER 24HR a, 09/07/ Ld, 2016 MD Joya / Hx Powder [id number] Wash And Unknown 0000 - t/GM Dry Skin Apply 2018 Three Times A Day To Skin Fold Rash as needed Triamcinolone / Hx Cream 0.5% applies to Digiovann Acetonide 0000 - affected a, area prn Faina, 2018 [employer] Ibuprofen / Hx Tablets 200mg 3 tabs by Unknown 0000 - mouth as needed 2018 Medications Administered in Office Medication Date Status Form Strength Qnty SIG Indications Ordering Provider Synvisc Or Administered Injection Suma Synvisc-One Alexa Julian M.D. Injection 1 MG Synvisc Or Administered Injection Suma Synvisc-One 018 Jordana Julian Injection 1 MG Celestone 3 mg Administered Injection Eliel M and 3mg 018 MD Mal Celestone 3 mg Administered Injection Eliel M and 3mg 018 MD Mal Celestone 3 mg Administered Injection Eliel M and 3mg 017 MD Mal Celestone 3 mg Administered Injection Eliel M and 3mg 017 MD Mal Immunizations Description No Information Available Vital Signs Date Vital Result Comment 10/29/2018 1:07pm Height 66 inches 5'6" Heart Rate 72 /min BP Systolic 132 mmHg BP Diastolic 84 mmHg Respiratory Rate 18 /min Pain Level 3 10/18/2018 9:28am Height 66 inches 5'6" Weight 268.00 lb BP Systolic 124 mmHg BP Diastolic 84 mmHg Body Temperature 98.1 F BMI (Body Mass Index) 43.3 kg/m2 10/08/2018 9:13am Height 66 inches 5'6" Heart Rate 87 /min BP Systolic 138 mmHg BP Diastolic 88 mmHg Respiratory Rate 18 /min Body Temperature 97.6 F Pain Level 5 09/27/2018 4:03pm Height 66 inches 5'6" Weight 273.00 lb Heart Rate 76 /min BP Systolic 122 mmHg BP Diastolic 82 mmHg Body Temperature 98.7 F Pain Level 8 BMI (Body Mass Index) 44.1 kg/m2 09/24/2018 1:03pm Height 66 inches 5'6" Weight 255.00 lb BP Systolic Sitting 126 mmHg BP Diastolic Sitting 68 mmHg Respiratory Rate 17 /min Pain Level 7 BMI (Body Mass Index) 41.2 kg/m2 09/16/2018 10:31am Height 66 inches 5'6" Heart Rate 71 /min BP Systolic 120 mmHg BP Diastolic 92 mmHg Respiratory Rate 16 /min Pain Level 4 O2 % BldC Oximetry 99 % 06/23/2018 10:57am Height 66 inches 5'6" Weight 255.00 lb Heart Rate 72 /min BP Systolic 134 mmHg BP Diastolic 76 mmHg Respiratory Rate 12 /min Body Temperature 97.8 F Pain Level 4 BMI (Body Mass Index) 41.2 kg/m2 06/04/2018 1:27pm Height 68 inches 5'8" Heart Rate 67 /min BP Systolic 114 mmHg BP Diastolic 86 mmHg Respiratory Rate 16 /min Pain Level 6 O2 % BldC Oximetry 97 % 12/02/2017 2:35pm Height 68 inches 5'8" Body Temperature 97.8 F Pain Level 0 10/22/2017 9:41am Height 68 inches 5'8" Weight 263.00 lb w/ shoes Heart Rate 66 /min reg BP Systolic Sitting 128 mmHg Rue, lg cuff BP Diastolic Sitting 86 mmHg Rue, lg cuff Respiratory Rate 16 /min Body Temperature 97.1 F tympanic Pain Level 5 left arm BMI (Body Mass Index) 40.0 kg/m2 09/08/2017 11:42am Height 68 inches 5'8" Heart Rate 67 /min BP Systolic Sitting 120 mmHg BP Diastolic Sitting 76 mmHg Respiratory Rate 16 /min Pain Level 3 O2 % BldC Oximetry 97 % 09/02/2017 3:13pm Height 68 inches 5'8" Weight 257.00 lb Heart Rate 64 /min BP Systolic 125 mmHg BP Diastolic 84 mmHg Body Temperature 97.2 F BMI (Body Mass Index) 39.1 kg/m2 06/17/2017 11:27am Height 66.25 inches 5'6.25" Weight 240.00 lb Heart Rate 76 /min BP Systolic 126 mmHg BP Diastolic 76 mmHg Respiratory Rate 16 /min BMI (Body Mass Index) 38.4 kg/m2 05/14/2017 10:43am Height 66.25 inches 5'6.25" Weight 240.00 lb Heart Rate 74 /min BP Systolic 124 mmHg BP Diastolic 74 mmHg Respiratory Rate 16 /min Pain Level 4 did not take ibu BMI (Body Mass Index) 38.4 kg/m2 03/09/2017 11:12am Height 66.25 inches 5'6.25" Weight 253.00 lb Heart Rate 76 /min BP Systolic 114 mmHg BP Diastolic 82 mmHg Respiratory Rate 20 /min Pain Level 4 BMI (Body Mass Index) 40.5 kg/m2 Results Description No Information Available Procedures Date Code Description Status 10/29/2018 Inject/Drain Joint/Bursa Major W/O US Completed 10/18/2018 Inject/Drain Joint/Bursa Major W/O US Completed 10/08/2018 Inject/Drain Joint/Bursa Major W/O US Completed 09/16/2018 Inject/Drain Joint/Bursa Major W/O US Completed 06/04/2018 08598 Xray Knee 3 Views Completed 06/04/2018 Inject/Drain Joint/Bursa Major W/O US Completed 09/08/2017 Inject/Drain Joint/Bursa Major W/O US Completed 05/14/201700136 Injection Single Tendon Origin/Insertion Completed 12/04/2016 08566 Nerve Conduction, Sensory Completed 12/04/2016 63669 Nerve Conduction, Motor W/F-Wave Study Completed 12/04/2016 69355 Needle Electromyography Complete, Five Or More Muscles Completed Studied Encounters Type Date Location Provider Dx Diagnosis Office Visit 09/27/2018 Orthopedic Suma Julian, M17.11 Unilateral primary 3:45p [facility] osteoarthritis, right knee M25.461 Effusion, right knee M25.561 Pain in right knee E66.01 Morbid (severe) obesity due to excess calories Z68.41 Body mass index (BMI) 40.0-44.9, adult Office Visit 09/24/2018 Wilbert Momin M17.11 Unilateral primary 1:00p [facility] Resendez MD osteoarthritis, right AT [place] knee M23.41 Loose body in knee, right knee Office Visit 09/16/2018 Orthopedic Eliel Momin M17.11 Unilateral primary 10:30a [facility] Res[facility] MD osteoarthritis, right AT [place] knee M23.91 Unspecified internal derangement of right knee M25.461 Effusion, right knee Office Visit 06/23/2018 Orthopedic Tyra W54.0xxD Bitten by dog, 10:45a [facility] Betancourt subsequent C.M.A. encounter S51.852D Open bite of left forearm, subsequent encounter Office Visit 06/04/2018 1:15p Orthopedic Eliel Momin M25.461 Effusion, right [facility] MD knee AT [place] M23.91 Unspecified internal derangement of right knee M25.561 Pain in right knee Office Visit 12/02/2017 Orth[facility] Tyra W54.0xxD Bitten by dog, 2:00p [facility] Beatncourt subsequent C.M.A. encounter S51.852D Open bite of left forearm, subsequent encounter Office Visit 10/22/2017 [facility] Tyra W54.0xxD Bitten by dog, 9:30a [facility] subsequent C.M.A. encounter S51.852D Open bite of left forearm, subsequent encounter Office Visit 09/08/2017 Orthopedic Eliel Resendez, M75.31 Calcific 11:30a [facility] KIM tendinitis of AT [place] right shoulder Office Visit 09/02/2017 Wilbert Mary S51.852A Open bite of 3:00p [facility]anc[facility] left forearm, C.M.A. initial encounter W54.0xxA Bitten by dog, initial encounter S51.832S Puncture wound without foreign body of left forearm, sequela Office Visit 06/17/2017 11:30a [facility] Eliel Momin S51.832S Puncture wound [facility] Res[facility] MD without foreign AT [place] body of left forearm, sequela W54.0xxS Bitten by dog, sequela M79.622 Pain in left upper arm Office Visit 05/14/2017 10:30a Orthopedic Eliel Momin S51.832D Puncture wound [facility] MD w/o foreign AT [place] body of left forearm, subs encntr W54.0xxD Bitten by dog, subsequent encounter M79.632 Pain in left forearm Office Visit 03/09/2017 11:00a Orthopedic Eliel Momin S51.832S Puncture wound [facility] MD without foreign AT [place] body of left forearm, sequela W54.0xxS Bitten by dog, sequela M79.632 Pain in left forearm Plan of Treatment Future Appointment(s):12/01/2018 10:45 am - Suma Julian M.D. at [facility].10/29/2018 - Suma Julian M.D.M17.11 Unilateral primary osteoarthritis, right kneeFollow up:Follow up: 4 agwmrU93.461 Effusion, right kneeM25.561 Pain in right kneeE66.01 Morbid (severe) obesity due to excess calories
--- NOTE | 2018-11-23 13:27 | ED ---
Respiratory - HPI Summary HPI Summary: 53-year-old female with history of asthma presents with reports of 5 days of nasal congestion, clear nasal drainage, and postnasal drip. States approximately 3 days ago she started to develop a harsh, nonproductive, bronchospastic cough that is progressively worsened as well as intermittent wheezing and shortnes of breath. States she has had some left lower back pain especially with cough. She also notes onset of left ear pain yesterday. Symptoms associated with some mild chills. Denies fever, dysphagia, chest pain , palpitations, abdominal pain, nausea, vomiting, or diarrhea. - History of Current Complaint Chief Complaint: UCGeneralIllness Stated Complaint: SOB/ASTHMA Time Seen by Provider: 11/23/18 13:12 Hx Obtained From: Patient Pain Intensity: 4 - Allergy/Home Medications Allergies/Adverse Reactions: Allergies Allergy/AdvReac Type Severity Reaction Status Date / Time cephalexin [From Keflex] Allergy Intermediate Hives Verified 11/23/18 12:51 Home Medications: Home Medications Acetaminophen [Tylenol Extra Strength] 1,000 mg PO Q6H PRN 11/23/18 [History Confirmed 11/23/18] Cannabidiol (Cbd) Extract [Epidiolex] 3 drop PO TID 11/23/18 [History Confirmed 11/23/18] Chrom Jada/Brindal Denny [Appetite Control Tablet] 1 each PO DAILY 11/23/18 [ History Confirmed 11/23/18] Dextromethorphan Hb/Doxylamine [Nighttime Cough Liquid] 30 ml PO BEDTIME PRN 12/11 [History Confirmed 11/23/18] PMH/Surg Hx/FS Hx/Imm Hx Endocrine/Hematology History: Denies: Hx Blood Disorders, Hx Diabetes Cardiovascular History: Reports: Hx Hypertension Denies: Hx Coronary Artery Disease, Hx Deep Vein Thrombosis, Hx Embolism, Hx Pacemaker/ICD Respiratory History: Reports: Hx Asthma History: Denies: Hx Renal Disease Psychiatric History: Reports: Hx Anxiety, Hx Depression Denies: Hx Panic Disorder - Surgical History Surgery Procedure, Year, and Place: uterine ablation. gallbladder 2009. 2 c- sections. VEIN "STRIPPIN G- SOLANGE - VARICOSE VEINS Infectious Disease History: No Infectious Disease History: Denies: Hx Clostridium Difficile, Hx Hepatitis, Hx Human Immunodeficiency Virus (HIV), Hx of Known/Suspected MRSA, Hx Shingles, Hx Tuberculosis, Hx Known/ Suspected VRE, Hx Known/Suspected VRSA, History Other Infectious Disease, Traveled Outside the [place] in Last 30 Days - Family History Known Family History: Positive: Non-Contributory - Social History Occupation: Employed Full-time Lives: With Family Alcohol Use: Weekly Hx Substance Use: No Substance Use Type: Reports: None Hx Tobacco Use: No Smoking Status (MU): Never Smoked Tobacco Have You Smoked in the Last Year: No Review of Systems Positive: Chills. Negative: Fever Negative: Drainage, Erythema Positive: Sore Throat, Ear Ache, Nasal Discharge. Negative: Dental Pain Positive: Chest Pain Positive: Shortness Of Breath, Cough, Other - Wheezing Negative: Abdominal Pain, Vomiting, Diarrhea, Nausea Positive: no symptoms reported Skin: Negative Neurological: Negative All Other Systems Reviewed And Are Negative: Yes Physical Exam - Summary Physical Exam Summary: GENERAL APPEARANCE: Well developed, obese, alert and cooperative, and appears to be in no acute distress. EYES: Conjunctiva clear. No discharge. Vision is grossly intact. EARS: External auditory canals clear, hearing grossly intact. Right TM normal. Left TM with erythema. NOSE: Mild nasal congestion with moderate mucosal erythema and edema. No nasal discharge. THROAT: Mild pharyngeal erythema without tonsilar inflammation, swelling, exudate, or lesions. Oral cavity normal.Teeth and gingiva in good general condition. NECK: Neck supple, non-tender without lymphadenopathy. CARDIAC: Normal S1 and S2. No S3, S4 or murmurs. Rhythm is regular. There is no peripheral edema, cyanosis or pallor. Extremities are warm and well perfused. Capillary refill is less than 2 seconds. LUNGS: Clear to auscultation and percussion without rales, rhonchi, wheezing or diminished breath sounds. Harsh, non-productive, bronchospastic cough. ABDOMEN: Positive bowel sounds. Soft, nondistended, nontender. No guarding or rebound. No masses or hepatosplenomegally. MUSKULOSKELETAL: ROM intact to all extremities. No joint erythema or tenderness. Normal muscular development. Normal gait. SKIN: Skin normal color, texture and turgor with no lesions or eruptions Triage Information Reviewed: Yes Vital Signs On Initial Exam: Initial Vitals Temp Pulse Resp BP Pulse Ox 97.3 F 80 20 134/90 100 11/23/18 12:58 11/23/18 12:58 11/23/18 12:58 11/23/18 12:58 11/23/18 12:58 Vital Signs Reviewed: Yes Diagnostics - Vital Signs Vital Signs Temp Pulse Resp BP Pulse Ox 11/23/18 12:58 97.3 F 80 20 134/90 100 - Laboratory Lab Statement: Any lab studies that have been ordered have been reviewed, and results considered in the medical decision making process. Disposition - Course Course Of Treatment: 53-year-old female with history of asthma presents with reports of 5 days of nasal congestion, clear nasal drainage, and postnasal drip. States approximately 3 days ago she started to develop a harsh, nonproductive, bronchospastic cough that is progressively worsened as well as intermittent wheezing and shortnes of breath. States she has had some left lower back pain especially with cough. She also notes onset of left ear pain yesterday. Symptoms associated with some mild chills. Denies fever, dysphagia , chest pain, palpitations, abdominal pain, nausea, vomiting, or diarrhea. Afebrile. Vital signs stable. Exam revealed some minor nasal congestion with mucosal erythema and edema, mild pharyngeal erythema without tonsillar swelling , exudate, or cervical lymphadenopathy, left TM erythema, patient does have a nonproductive bronchospastic cough however bilateral breath sounds were clear at time of exam and remaining exam was unremarkable. Will treat for upper respiratory infection, left otitis media, and asthma exacerbation with a course of azithromycin, 3 days of prednisone, we will have her continue using her albuterol inhaler as needed, Tessalon Perles as needed for cough, fluticasone nasal spray and saline rinses for the nasal congestion. She is to follow-up with her primary care provider in 5-7 days if symptoms do not improve. Warning symptoms were reviewed with the patient. She verbalizes understanding and agrees with plan of care. - Differential Dx - Cardiopulmonary Differential Diagnoses - Cardiopulmonary: Asthma, Bronchitis, Chest Wall Pain, Influenza, Lower Resp Infection, Pleurisy - Diagnoses Provider Diagnoses: URI with cough and congestion, Left otitis media, Asthma exacerbation Discharge - Sign-Out/Discharge Documenting (check all that apply): Patient Departure All imaging exams completed and their final reports reviewed: No Studies - Discharge Plan Condition: Stable Disposition: HOME Prescriptions: Azithromyxin HERMES (NF) [Z-Hermes (Zithromax) 250 mg tabs #6] 2 tab PO .TODAY, THEN 1 DAILY #6 tab Benzonatate CAP* [Tessalon 100 MG CAP*] 100 mg PO TID PRN #30 cap PRN Reason: Cough Fluticasone NASAL SPRAY 50MCG* [Flonase NASAL SPRAY 50MCG*] 2 spray BOTH NARES DAILY #1 btl predniSONE TAB* [Deltasone 20 MG TAB*] 40 mg PO DAILY #6 tab Patient Education Materials: Asthma (ED), Upper Respiratory Infection (ED) Forms: *Work Release Referrals: Ld Lopez MD [Primary Care Provider] - 5 Days (If no improvement in symptoms) Additional Instructions: Your history and exam are consistent with an upper respiratory infection with a left ear infection and asthma exacerbation. Start azithromycin 2 tabs today then 1 tab a day for next 4 days. Take prednisone 40 mg (2 tabs) daily for next 3 days to help with the inflammation of the airways. Take Tessalon Perles 1 cap every 8 hours as needed for cough. Use your albuterol inhaler as directed. Use a saline rinse kit such as Neti Pot or NeilMed at least twice a day to help thin secretions and promote drainage of the sinuses. Use fluticasone (Flonase) nasal spray 2 sprays each nostril once daily. Take over the counter acetaminophen (Tylenol) or ibuprofen (Advil, Motrin) according to directions as needed for pain or fever. Use salt water gargles several times a day if you have a sore throat. You may also use Chloraseptic spray or Cepacol lonzenges according to directions which contain a numbing medication and can provide some temporary relief from your sore throat. Follow up with your primary care provider in 5-7 days if symptoms persist. Seek immediate medical attention in the emergency room if you have fever greater than 100.5 F despite taking acetaminophen or ibuprofen, have chest pain , difficulty breathing, persistent wheezing despite using albuterol inhaler/ nebulizer, you are unable to swallow, or have any worsening of symptoms. - Billing Disposition and Condition Condition: STABLE Disposition: Home
== END 2018-11-23 13:50 | disposition home or self-care (01) ==
LOC: UCCORT 12:50
DX: H66.92 Otitis media, unspecified, left ear (principal); R09.81 Nasal congestion; J45.901 Unspecified asthma with (acute) exacerbation; Z88.1 Allergy status to other antibiotic agents; I10 Essential (primary) hypertension; J06.9 Acute upper respiratory infection, unspecified; R05 Cough
CPT/HCPCS: 99212; G0463

== ENCOUNTER 2019-11-08 07:19 | Inpatient (IN) | payer BC ==
[~2019-11-08 07:19] MED LIST: Buffered Lidocaine 1% SYRIN* 1 ML/SYRINGE INTRADERM ONE; Famotidine IV* 10 MG/ML 2 ML (20 mg) IV ONE
--- OUTSIDE RECORDS SUMMARY | 2019-11-08 07:22 | XMS REPORT | Continuity of Care Document ---
:1965 External Reference #:[id number] Author Name Bonnie Roche NP (transmitted by agent of provider Michelle Worthy) Address [address] [place] [address] Care Team Providers Name Role Phone Ld Lopez MD - Family Care Team Information Methods Analyst Data Processing Medicine Problems Active Problems Provider Date Morbid obesity Suma Julian M.D. Onset: 09/27/2018 Localized, primary osteoarthritis Suma Julian M.D. Onset: 09/27/2018 Social History Type Date Description Comments Sex Unknown Tobacco Use Start: Unknown Never Smoked Cigarettes ETOH Use Occasionally consumes 4-5 drinks per week alcohol Recreational Drug Use Denies Drug Use Tobacco Use Start: Unknown Patient has never smoked Smoking Status Reviewed: 09/09/19 Patient has never smoked Exercise Type/Frequency Exercises sporadically Allergies, Adverse Reactions, Alerts Active Allergies Reaction Severity Comments Date Cephalexin 03/09/2017 Seasonal 09/08/2017 Medications Active Medications SIG Qnty Indications Ordering Date Provider Meloxicam 1 by mouth every 90tabs M17.11 Suma Julian, 09/27/2018 15mg Tablets day M.D. Cane use for ambulation 1units Suma Julian, 09/27/2018 Misc - severe knee oa/ M.D. pain Duloxetine HCL 1 by mouth every Unknown 60mg day Caps DR Part Oxybutynin Chloride 1 by mouth every Unknown ER day 10mg Tablets ER 24HR Proair HFA 2 puffs by mouth Unknown 108(90Base) every 4 hours as mcg/Act Aerosol needed Multivitamins 1 by mouth every Unknown Capsules day Vitamin D2 1 by mouth Unknown 2000Unit everyday Tablets Qvar 2 puff twice a day Unknown 40mcg/Act Aerosol prn Metaxalone take 1 tablet 3 Unknown 800mg times a day as Tablets needed Toprol XL 1 by mouth every Unknown 25mg Tablets day ER 24HR Loratadine 1 by mouth every Unknown 10mg night at bedtime Capsules Lorazepam 1/2 to 1 tab po Digiovanna, 2mg Tablets bid prn MD Ld CBD as needed for Unknown anxiety Estroven Weight 1 by mouth daily Unknown Management Capsules History Medications Percocet 1 qhs as needed 10tabs Tyra Betancuort, 06/06/2019 - 5-325mg for pain M.D. 09/08/2019 Tablets Gabapentin 1po day 1, 1 by 90caps Tyra Betancourt, 05/19/2019 - 300mg mouth twice a M.D. 09/08/2019 Capsules day day 2, then 1 by mouth three times a day Medications Administered in Office Medication SIG Qnty Indications Ordering Provider Date Depomedrol 40MG Tyra Betancourt M.D. 01/26/2019 Injection Synvisc Or Synvisc-One Suma Julian M.D. 10/29/2018 Injection 1 MG Injection Synvisc Or Synvisc-One Suma Julian M.D. 10/18/2018 Injection 1 MG Injection Synvisc Or Synvisc-One Suma Julian M.D. 10/08/2018 Injection 1 MG Injection Celestone 3 mg and 3mg Eliel Resendez MD 09/16/2018 Injection Celestone 3 mg and 3mg Eliel Resendez MD 06/04/2018 Injection Celestone 3 mg and 3mg Eliel Resendez MD 09/08/2017 Injection Celestone 3 mg and 3mg Eliel Resendez MD 05/14/2017 Injection Immunizations Description No Information Available Vital Signs Date Vital Result Comment 09/09/2019 9:47am Height 66 inches 5'6" Weight 279.00 lb Heart Rate 83 /min BP Systolic 125 mmHg BP Diastolic 81 mmHg O2 % BldC Oximetry 95 % BMI (Body Mass Index) 45.0 kg/m2 07/04/2019 1:29pm Height 66 inches 5'6" Weight 267.00 lb BP Systolic 130 mmHg BP Diastolic 88 mmHg Respiratory Rate 16 /min Body Temperature 97.9 F Pain Level 4 BMI (Body Mass Index) 43.1 kg/m2 Results Description No Information Available Procedures Description No Information Available Medical Devices Description No Information Available Encounters Type Date Location Provider Dx Diagnosis Office Visit 07/04/2019 [facility] Tyra Betancourt, W54.0xxD Bitten by dog, 1:30p at [facility] subsequent encounter S51.852D Open bite of left forearm, subsequent encounter Office Visit 05/19/2019 [facility]ra W54.0xxD Bitten by dog, 3:30p [facility]oped[facility] at [facility] Bet[facility]ourt subsequent [place] encounter 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 07/04/2019 S51.852D Open bite of left forearm, subsequent Tyra Betancourt M.D. encounter 05/19/2019 W54.0xxD Bitten by dog, subsequent encounter Tyra Betancourt M.D. 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 05/19/2019 S51.852D Open bite of left forearm, subsequent Tyra Betancourt M.D. encounter 05/19/2019 W54.0xxD Bitten by dog, subsequent encounter Tyra Betancourt M.D. Plan of Treatment No Information Available Functional Status Description No Information Available Mental Status Description No Information Available Referrals Description No Information Available
--- OUTSIDE RECORDS SUMMARY | 2019-11-08 07:22 | XMS REPORT | Continuity of Care Document ---
:1965 External Reference #:[id number] Author Name Kaylie Ly PA (transmitted by agent of provider Sunita Cervantes) Address [address], [address] [place] [address] Care Team Providers Name Role Phone Ld Lopez MD - Family Care Team Information Board Certified Behavioral Analyst Medicine Nessa Bolaños RNC - Women's Health Care Team Information Board Certified Behavioral Analyst Problems Active Problems Provider Date Precordial pain Bret Lind MD, PhD Onset: 01/02/2014 Palpitations Bret Lind MD, PhD Onset: 01/02/2014 Mitral valve disorder Bret Lind MD, PhD Onset: 01/02/2014 Bariatric surgery status Izabel Addison DO Onset: 09/20/2019 Adjustment disorder with mixed emotional Izabel Addison DO Onset: 2018 features Family history of breast cancer Izabel Addison DO Onset: 09/20/2019 Social History Type Date Description Comments Sex Unknown Tobacco Use Start: Unknown Never Smoked Cigarettes ETOH Use Drinks 2 Alcoholic Beverages Per Week Tobacco Use Start: Unknown Patient has never smoked Recreational Drug Use Denies Drug Use Smoking Status Reviewed: 10/07/19 Patient has never smoked Allergies, Adverse Reactions, Alerts Active Allergies Reaction Severity Comments Date Keflex 01/02/2014 Medications Active Medications SIG Qnty Indications Ordering Provider Date Oxybutynin Chloride qd Unknown Tab Metoprolol Succinate 1 tab qd Unknown 25mg Tablets Vitamin D 1 po qd Unknown 2000Unit Capsules Multivitamins 1 by mouth 90caps Unknown Capsules every day Albuterol 1 puff q4h prn Unknown Powder Ibuprofen 1 po tid for 30tabs Unknown 800mg Tablets pain CBD Oil 500MG tid Unknown Duloxetine HCL 1 cap daily Digiovanna, 60mg Caps DR Ld Mckinney MD Part Meloxicam Take One Tablet Unknown 15mg Tablets By Mouth Every Day Lorazepam tid prn Digiovanna, 2mg Tablets Ld Mckinney MD Metaxalone Take One Tablet Unknown 800mg Tablets By Mouth Three Times A Day as Needed For Muscle Spasm Vitamin B12 1 by mouth once Unknown 1000mcg Tablets a day ER Caltrate 600+D Plus 1 a day Unknown Minerals [id number] Chewtabs Immunizations Description No Information Available Vital Signs Date Vital Result Comment 10/07/2019 9:10am BP Systolic Sitting Right Arm 128 mmHg BP Diastolic Sitting Right Arm 76 mmHg Heart Rate 89 /min Respiratory Rate 16 /min Height 65.75 inches 5'5.75" Weight 281.00 lb BMI (Body Mass Index) 45.7 kg/m2 BSA (Body Surface Area) 2.30 m2 [place] body weight in kilograms 58 kg O2 % BldC Oximetry 95 % ra 09/20/2019 9:02am BP Systolic 132 mmHg BP Diastolic 80 mmHg Body Temperature 98.5 F Heart Rate 88 /min Respiratory Rate 18 /min Height 65.75 inches 5'5.75" Weight 280.00 lb BMI (Body Mass Index) 45.5 kg/m2 BSA (Body Surface Area) 2.30 m2 [place] body weight in kilograms 58 kg O2 % BldC Oximetry 96 % Pain Level 0 Results Test Acquired Date Facility Test Result H/L Range Note CBC 09/27/2019 [facility] White Blood 5.7 K/uL Normal 3.1-10.7 1 W/Automated [address] [place] [address] [phone] Red Blood Count 4.71 M/uL Normal 3.90-5.40 Hemoglobin 14.2 gm/dL Normal 11.6-15.8 Hematocrit 44.1 % Normal 36.0-46.1 Mean Cell Volume 93.6 fl Normal 80.9-99.0 Mean Corpuscular HGB 30.1 pg Normal 25.9-32.7 Mean Corpuscular HGB Conc 32.2 g/dL Normal 30.8-34.3 Platelet Count 282 K/uL Normal 155-360 Red Cell Distri Width SD 44.2 fl Normal 36-47 Red Cell Distri Width %CV 12.8 % Normal 11.7-14.4 Mean Platelet Volume 10.3 fl Normal 8.9-12.4 Neut% 65.4 % Normal 40.4-72.8 Lymph % 21.6 % Normal 20.0-42.0 Sebastian % 7.7 % Normal 4.3-13.2 Eo% 4.2 % Normal 0.0-6.6 Bas% 0.9 % Normal 0.0-1.1 Immature Grans 0.2 % Normal 0.0-5.0 NRBC % 0.0 /100WBC < 10/ 100 WBC Neut# 3.72 K/uL Normal 1.8-7.0 Lymph # 1.23 K/uL Normal 1.0-4.0 Sebastian # 0.44 K/uL Normal 0.3-0.9 Eos # 0.24 K/uL Normal 0.0-0.5 Baso # 0.05 K/uL Normal 0.0-0.1 Immature Grans Absolute 0.01 K/uL NRBC # 0.00 K/uL Comprehensive 09/27/2019 [facility] Glucose 84 mg/dL Normal 74-106 Metabolic Panel [address] [place] [address] [phone] BUN 13 mg/dL Normal 7-18 Creatinine 0.8 mg/dL Normal 0.6-1.3 Glom Filtration Rate, Estimate >60 mL/min >60 If >60 mL/min >60 2 BUN/Creat 16.2 ratio Sodium 140 mmol/L Normal 136-145 Potassium 4.0 mmol/L Normal 3.5-5.1 Chloride 108 mmol/L High 98-107 Carbon Dioxide 27 mmol/L Normal 21-32 Anion Gap 5 mEq/L Low 8-16 Calcium 8.6 mg/dL Normal 8.5-10.1 Total Protein 7.0 g/dL Normal 6.4-8.2 Albumin 3.8 g/dL Normal 3.4-5.0 Globulin 3.2 g/dL Normal 1.9-4.3 Alb/Glob 1.2 ratio Bilirubin,Total 0.4 mg/dL Normal 0.2-1.0 Sgot/Ast 16 U/L Normal 15-37 SGPT/Alt 25 U/L Normal 12-78 Alkaline Phosphatase 138 U/L High 45-117 Iron-Tibc-%Sat 09/27/2019 [facility] Serum Iron 95 g/dL Normal 50-170 [address] [place] [address] [phone] Total Iron Binding Capacity 326 g/dL Normal 250-450 Transferrin %Saturation 29 % Normal 12-57 Laboratory test 09/27/2019 [facility] Ferritin 93 ng/mL Normal 8-252 finding [address] [place] [address] [phone] Vitamin B12 And 09/27/2019 [facility] Vitamin B12 830 pg/mL Normal 193-986 Folate [address] [place], [place] [address] [phone] Folic Acid > 20.0 ng/mL High 3.1-17.5 Laboratory 09/27/2019 [facility] Vitamin 27.3 Low 30.0-100.0 3 test finding [address] D,25-Hydroxy ng/mL [place], [place] [id number] [phone] 1 Z80.3 Z98.84 F43.23 2 Note: Persistent reduction for 3 months or more in an eGFR <60 mL/min/1.73 m2 defines CKD. Patients with eGFR values >/=60 mL/min/1.73 m2 may also have CKD if evidence of persistent proteinuria is present. The original MDRD equation for estimated GFR is not valid for patients less than 18 years of age. Additional information may be found at www.kdoqi.org. 3 Vitamin D deficiency has been defined by the [place] [employer] and an Endocrine Society practice guideline as a level of serum 25-OH vitamin D less than 20 ng/mL (1,2). The Endocrine Society went on to further define vitamin D insufficiency as a level between 21 and 29 ng/mL (2). 1. IOM ([place] [employer]). 2010. Dietary reference intakes for calcium and D. [place]: The National Academies Press. 2. Vignesh MF, Tamika KHAN, Peggy PURCELL, et al. Evaluation, treatment, and prevention of vitamin D deficiency: an Endocrine Society clinical practice guideline. JCEM. 2010; 96(7):1911-30. Performed at: RN - [facility] [address] [id number] Assistant Media Planner: Lian Hurtado MD, Phone: [phone] Procedures Date Code Description Status 10/07/2019 71952 EKG-Tracing And Report Completed Medical Devices Description No Information Available Encounters Type Date Location Provider Dx Diagnosis Office Visit 10/07/2019 Cardiology Office Kaylie Ly Z01.810 Encounter for 9:00a JAVY Darling preprocedural cardiovascular examination R00.2 Palpitations Office Visit 09/20/2019 9:00a Oncology Office Azael Z80.3 Family history DO Izabel of malignant neoplasm of breast Z98.84 Bariatric surgery status F43.23 Adjustment disorder with mixed anxiety and depressed mood Assessments Date Code Description Provider 10/07/2019 Z01.810 Encounter for preprocedural cardiovascular Kaylie Ly PA examination 10/07/2019 R00.2 Palpitations Kaylie Ly PA 09/27/2019 Z80.3 Family history of malignant neoplasm of Izabel Addison, DO breast 09/27/2019 Z80.3 Family history of malignant neoplasm of Oncology Nurse breast 09/27/2019 Z98.84 Bariatric surgery status Izabel Addison, 09/27/2019 Z98.84 Bariatric surgery status Oncology Nurse 09/27/2019 F43.23 Adjustment disorder with mixed anxiety and Michele Addisont, DO depressed mood 09/27/2019 F43.23 Adjustment disorder with mixed anxiety and Oncology Nurse depressed mood 09/20/2019 Z80.3 Family history of malignant neoplasm of LdalMichelet, DO breast 09/20/2019 Z98.84 Bariatric surgery status Michele Addisont, 09/20/2019 F43.23 Adjustment disorder with mixed anxiety and Radha Addisonaret, DO depressed mood Plan of Treatment Future Appointment(s):12/09/2019 3:30 pm - Izabel Addison DO at Oncology Vfdaae5710/07/2019 - Kaylie Ly, PAZ01.810 Encounter for preprocedural cardiovascular examinationComments:As above.R00.2 PalpitationsComments:Monitor. No changes.AllFollow up:We will see the patient on a PRN basis from this point. We would be happy to see them again as deemed necessary. Functional Status Functional Condition Comment Date Status Independent with all ADL's Active Mental Status Description No Information Available Referrals Description No Information Available
--- OUTSIDE RECORDS SUMMARY | 2019-11-08 07:22 | XMS REPORT | Continuity of Care Document ---
:1965 External Reference #:[id number] Author Name Izabel Addison DO (transmitted by agent of provider Haley Ugarte) Address [address] [place] [address] Care Team Providers Name Role Phone Ld Lopez MD - Family Care Team Information Carton Wrapper [phone] Medicine Nessa Bolaños RNC - Women's Health Care Team Information Carton Wrapper Problems Active Problems Provider Date Precordial pain Bret Lind MD, PhD Onset: 01/02/2014 Palpitations Bret Lind MD, PhD Onset: 01/02/2014 Mitral valve disorder Bret Lind MD, PhD Onset: 01/02/2014 Bariatric surgery status Izabel Addison DO Onset: 09/20/2019 Adjustment disorder with mixed emotional AdelfoIzabel rosario Onset: 2018 features Family history of breast cancer Izabel Addison Onset: 09/20/2019 Social History Type Date Description Comments Sex Unknown Tobacco Use Start: Unknown Never Smoked Cigarettes ETOH Use Drinks Alcoholic Beverages Occasionally Allergies, Adverse Reactions, Alerts Active Allergies Reaction [...] A Day as Needed For Muscle Spasm Immunizations Description No Information Available Vital Signs Date Vital Result Comment 09/20/2019 9:02am BP Systolic 132 mmHg BP Diastolic 80 mmHg Body Temperature 98.5 F Heart Rate 88 /min Respiratory Rate 18 /min Height 65.75 inches 5'5.75" Weight 280.00 lb BMI (Body Mass Index) 45.5 kg/m2 BSA (Body Surface Area) 2.30 m2 [place] body weight in kilograms 58 kg O2 % BldC Oximetry 96 % Pain Level 0 02/09/2014 8:58am BP Systolic Sitting Right Arm 126 mmHg BP Diastolic Sitting Right Arm 84 mmHg Respiratory Rate 16 /min Height 66 inches 5'6" Weight 262.00 lb BMI (Body Mass Index) 42.3 kg/m2 BSA (Body Surface Area) 2.24 m2 Results Description No Information Available Procedures Description No Information Available Medical Devices Description No Information Available Encounters Description No Information Available Assessments Date Code Description Provider 09/20/2019 Z80.3 Family history of malignant neoplasm of breast Izabel Addison DO 09/20/2019 Z98.84 Bariatric surgery status Izabel Addison DO 09/20/2019 F43.23 Adjustment disorder with mixed anxiety and Izabel Addison DO depressed mood Plan of Treatment Future Appointment(s):12/09/2019 3:30 pm - Izabel Addison DO at Oncology Arcmdt1409/27/2019 7:45 am - Oncology Nurse at Oncology Spfqsg1910/07/2019 9:00 am - Kaylie Ly PA at Cardiology Office Functional Status Functional Condition Comment Date Status Independent with all ADL's Active Mental Status Description No Information Available Referrals Description No Information Available
--- OUTSIDE RECORDS SUMMARY | 2019-11-08 07:22 | XMS REPORT | Continuity of Care Document ---
:1965 External Reference #:[id number] Author Name Kaylie Ly PA (transmitted by agent of provider Adalberto Lozano) Address [address], [address] [place] [address] Care Team Providers Name Role Phone Ld Lopez MD - Family Care Team Information Brass And Wind Instrument Repairer Medicine Nessa Bolaños RNC - Women's Health Care Team Information Brass And Wind Instrument Repairer [phone] Problems Active Problems Provider Date Precordial pain [...] 600+D Plus 1 a day Unknown Minerals [id number] Chewtabs Immunizations Description No Information Available Vital Signs Date Vital Result Comment 10/07/2019 9:10am BP Systolic Sitting Right Arm 128 mmHg BP Diastolic Sitting Right Arm 76 mmHg Heart Rate 89 /min Respiratory Rate 16 /min Height 65.75 inches 5'5.75" Weight 281.00 lb BMI (Body Mass Index) 45.7 kg/m2 BSA (Body Surface Area) 2.30 m2 [place] body weight in kilograms 58 kg O2 % BldC Oximetry 95 % ra 09/20/2019 9:02am BP Systolic 132 mmHg BP Diastolic 80 mmHg Body Temperature 98.5 F Heart Rate 88 /min Respiratory Rate 18 /min Height 65.75 inches 5'5.75" Weight 280.00 lb BMI (Body Mass Index) 45.5 kg/m2 BSA (Body Surface Area) 2.30 m2 [place] body weight in kilograms 58 kg O2 % BldC Oximetry 96 % Pain Level 0 Results Test Acquired Date Facility Test Result H/L Range Note CBC 09/27/2019 [facility] White Blood 5.7 K/uL Normal 3.1-10.7 1 W/Automated [address] [place] [address] [phone] Red Blood Count 4.71 M/uL Normal 3.90-5.40 [...] 40.4-72.8 Lymph % 21.6 % Normal 20.0-42.0 Hunt % 7.7 % Normal 4.3-13.2 Eo% 4.2 % Normal 0.0-6.6 Bas% 0.9 % Normal 0.0-1.1 Immature Grans 0.2 % Normal 0.0-5.0 NRBC % 0.0 /100WBC < 10/ 100 WBC Neut# 3.72 K/uL Normal 1.8-7.0 Lymph # 1.23 K/uL Normal 1.0-4.0 Hunt # 0.44 K/uL Normal 0.3-0.9 Eos # 0.24 K/uL Normal 0.0-0.5 Baso # 0.05 K/uL Normal 0.0-0.1 Immature Grans Absolute 0.01 K/uL NRBC # 0.00 K/uL Comprehensive 09/27/2019 [facility] Glucose 84 mg/dL Normal 74-106 Metabolic Panel [address] [place] [address] [phone] BUN 13 mg/dL Normal 7-18 Creatinine 0.8 [...] Phosphatase 138 U/L High 45-117 Iron-Tibc-%Sat 09/27/2019 [facility] Serum Iron 95 g/dL Normal 50-170 [address] [place] [address] [phone] Total Iron Binding Capacity 326 g/dL Normal 250-450 Transferrin %Saturation 29 % Normal 12-57 Laboratory test 09/27/2019 [facility] Ferritin 93 ng/mL Normal 8-252 finding [address] [place] [address] [phone] Vitamin B12 And 09/27/2019 [facility] Vitamin B12 830 pg/mL Normal 193-986 Folate [address] [place], [place] [address] [phone] Folic Acid > 20.0 ng/mL High 3.1-17.5 Laboratory 09/27/2019 [facility] Vitamin 27.3 Low 30.0-100.0 3 test finding [address] D,25-Hydroxy ng/mL [place], [place] [address] [phone] 1 Z80.3 Z98.84 F43.23 2 Note: Persistent [...] D deficiency has been defined by the [place] of [employer] and an Endocrine Society practice guideline as a level of serum 25-OH vitamin D less than 20 ng/mL (1,2). The Endocrine Society went on to further define vitamin D insufficiency as a level between 21 and 29 ng/mL (2). 1. IOM ([place] [employer]). 2010. Dietary reference intakes for calcium and D. [place]: The National Academies Press. 2. Vignesh MF, Tamika KHAN, Peggy PURCELL, et al. Evaluation, treatment, and prevention of vitamin D deficiency: an Endocrine Society clinical practice guideline. JCEM. 2010; 96(7):1911-30. Performed at: RN - [facility] [address] [id number] Regulator Pin Inserter: Lian Hurtado MD, Phone: [phone] Procedures Date Code Description Status 10/07/2019 79489 EKG-Tracing And Report Completed Medical Devices Description [...] 09/27/2019 Z98.84 Bariatric surgery status Izabel Addison, DO 09/27/2019 Z98.84 Bariatric surgery status Oncology Nurse 09/27/2019 F43.23 Adjustment disorder with mixed anxiety and Michele Addisont, DO depressed mood 09/27/2019 F43.23 Adjustment disorder with mixed anxiety and Oncology Nurse depressed mood 09/20/2019 Z80.3 Family history of malignant neoplasm of LdalMichelet, DO breast 09/20/2019 Z98.84 Bariatric surgery status Michele Addisont, DO 09/20/2019 F43.23 Adjustment disorder with mixed anxiety and LdalRadhaIzabel, DO depressed mood Plan of Treatment Future Appointment(s):12/09/2019 3:30 pm - Izabel Addison DO at Oncology Bczgxl1610/07/2019 - Kaylie Ly, PAZ01.810 Encounter for preprocedural [...]
[2019-11-08] MEDS ORDERED: Heparin VIAL(*) 5000 UNITS/ML VIAL (FIVE THOUSAND) ONE (07:51)
[2019-11-08] MEDS ORDERED: Famotidine IV* 10 MG/ML 2 ML (20 mg) ONE (07:51)
[2019-11-08] MEDS ORDERED: Clindamycin 900 MG/D5W BAG(*) 900 MG/50 ML BAG IVPB ONE (07:51)
[2019-11-08] MEDS ORDERED: Ondansetron INJ* 2 MG/ML VIAL ONE ×2 (08:31→14:01)
[2019-11-08] MEDS ORDERED: Dexamethasone IV* 4 MG/ML 1 ML (4 MG) ONE (08:31)
[2019-11-08] MEDS ORDERED: Ketorolac INJ* 30 MG/ML 1 ML VIAL ONE (08:31)
[2019-11-08] MEDS ORDERED: Rocuronium* 10 MG/ML VIAL ONE (08:31)
[2019-11-08] MEDS ORDERED: fentaNYL* 50 MCG/ML 2 ML VIAL (100 MCG VIAL) ONE ×3 (08:31→12:50)
[2019-11-08] MEDS ORDERED: KETAMINE HCL* 50 MG/ML 10 ML VIAL ONE (08:31)
[2019-11-08] MEDS ORDERED: Lidocaine 2% PF * 5 ML VIAL ONE (08:31)
[2019-11-08] MEDS ORDERED: Propofol* 10 MG/ML 20 ML BTL ONE (08:31)
[2019-11-08] MEDS ORDERED: Midazolam* 1 MG/ML 5 ML VIAL (5 MG) ONE (08:32)
[2019-11-08] MEDS: Lactated Ringers 1000 ML Bag* 1,000 ML IV SCH ×4 (09:24→21:05)
[2019-11-08] MEDS ORDERED: Methylene Blue 0.5 %* 50 MG/10 ML AMP IV ONE (09:32)
[2019-11-08] MEDS ORDERED: Bupivacaine 0.25% EPI 200,000* 30 ML SDV ONE (09:32)
[2019-11-08] MEDS ORDERED: Midazolam* 1 MG/ML 2 ML VIAL (2 MG) ONE (10:05)
[2019-11-08] MEDS ORDERED: Scopolamine 1.5 mg* PATCH ONE (10:09)
[2019-11-08] MEDS ORDERED: EPHEDrine (Pressors)* 50 MG/ML VIAL ONE (10:35)
[2019-11-08] MEDS ORDERED: Atropine 1MG/ML INJ* 1 ML VIAL ONE (10:38)
[2019-11-08] MEDS ORDERED: Levalbuterol 0.63MG/3ML NEB* UNIT OF USE INH PRN (11:09)
[2019-11-08] MEDS ORDERED: Naloxone* 0.4 MG/ML 1 ML VIAL IV PRN (11:09)
[2019-11-08] MEDS ORDERED: Scopolamine 1.5 mg* PATCH TRANSDERM PRN (11:09)
[2019-11-08] MEDS ORDERED: Ondansetron INJ* 2 MG/ML VIAL IV PRN ×2 (11:09→12:20)
[2019-11-08] MEDS ORDERED: Glycopyrrolate IV* 0.2 MG/ML 1 ML VIAL ONE (11:58)
[2019-11-08] MEDS ORDERED: Neostigmine Methylsulfate* 1 MG/ML 10 ML VIAL (1 mg/ml) ONE (11:58)
[2019-11-08] MEDS ORDERED: Acetaminophen ADULT LIQ* 650 MG/20.3 ML UDC PO PRN (12:20)
--- NOTE | 2019-11-08 12:20 | BRIEFOPN ---
Brief Operative/Procedure Note - Operation Details Pre-Op Diagnosis: Morbid obesity Post-Op Diagnosis: Morbid obesity Procedures: Laproscopic tatiana en y gastric bypass Surgeon(s)/Proceduralists: Dr. Jimenez. Assist JAVY Figueroa. Assist JAVY Martinez Anesthesia: GET. 2L LR Estimated Blood Loss: less than 50 Findings: As above Specimen(s)/Culture(s) Description: None Complications: None
[2019-11-08] MEDS ORDERED: Mometasone 220 MCG MDI INH PRN (12:28)
[2019-11-08] MEDS ORDERED: Albuterol HFA INHALER* 8 gm MDI INH PRN (12:28)
[2019-11-08] MEDS: fentaNYL* 50 MCG/ML 2 ML VIAL (100 MCG VIAL) IV PRN ×2 (12:52→12:57)
[2019-11-08] MEDS ORDERED: Ketorolac INJ* 30 MG/ML 1 ML VIAL IV SCH (13:00)
[2019-11-08] MEDS: Metoprolol Tartrate IV* 1 MG/ML 5 ML VIAL IV SCH ×2 (13:50→20:18)
[2019-11-08] MEDS ORDERED: HYDROmorphone INJ1* 1 MG/ML SYRINGE ONE (14:01)
[2019-11-08] MEDS: HYDROmorphone INJ1* 1 MG/ML SYRINGE IV SLOW PU PRN ×2 (14:04→18:41)
[2019-11-08] MEDS ORDERED: Metoclopramide IV* 5 MG/ML 2 ML VIAL ONE (15:56)
[2019-11-08] MEDS: Heparin VIAL(*) 5000 UNITS/ML VIAL (FIVE THOUSAND) SUBCUT SCH ×2 (16:02→22:50)
[2019-11-08] MEDS ORDERED: Metoclopramide IV* 5 MG/ML 2 ML VIAL IV PRN (16:18)
[2019-11-08] MEDS: Ketorolac INJ* 30 MG/ML 1 ML VIAL IV SCH (18:07)
--- NOTE | 2019-11-08 22:38 | OP ---
CC: [facility]; Dr. Ld Terry, [place], [place].* DATE OF OPERATION: 11/08/19 - ROOM #331 DATE OF : 63 SURGEON: Contreras Jimenez MD. OPTICAL EFFECTS LAYOUT PERSON: JAVY Uriostegui. ANESTHESIOLOGIST: Dr. Brewer. ANESTHESIA: General endotracheal. PRE-OP DIAGNOSIS: Clinically severe obesity and hiatal hernia. POST-OP DIAGNOSIS: Clinically severe obesity and hiatal hernia. OPERATIVE PROCEDURE: Laparoscopic Tony-en-Y gastric bypass. ESTIMATED BLOOD LOSS: Less than 20 mL. IV FLUIDS: Crystalloids. SPECIMENS: None. DRAINS: None. COMPLICATIONS: None. COUNTS: The instrument, needle, and sponge counts were correct. DESCRIPTION OF PROCEDURE: The patient was brought to the operating room, placed on the table supine. Sequential compression devices were placed on both lower extremities. General anesthesia was administered. The patient was positioned and padded appropriately and received appropriate intravenous antibiotics. After sterile and prep and drape of the abdomen, a time-out was performed. Local anesthetic was infiltrated into the skin and soft tissue prior to making each incision. Entry to the abdomen was through a left upper quadrant incision accommodating a 12 mm Optical trocar. After accessing the peritoneal cavity, carbon dioxide was insufflated to a pressure of 15 mmHg. Additional 12 mm bladeless trocars were placed in the supraumbilical midline and right upper quadrant. A 5 mm trocar was placed in the right upper quadrant medially and left upper quadrant laterally. Adhesiolysis was performed freeing of the omentum from the falciform ligament using LigaSure. A Matthieu liver retractor was placed percutaneously in the subxiphoid position and used to elevate the left lobe of the liver. Hiatal hernia was identified. This was moderately sized but it was not felt repair was warranted. Stomach was reduced opening the gastroesophageal ligament in order to clearly identify the gastroesophageal junction. Dissection proceeded along the left davonte of the diaphragm until it was well identified and perigastric dissection was undertaken on the lesser curvature to enter the lesser sac and with several firings of the EndoGIA stapler with courtney cartridges, the gastric pouch was created approximating 15 to 30 mL volume. Staple lines were noted to be intact and hemostatic. Next the omentum and transverse colon were retracted cephalad and the liver retractor was identified. Approximately 50 cm distal to this, a loop of jejunum was selected and this was brought antegastric antecolic sutured to the left side staple line on the gastric pouch with interrupted 2-0 silks. The gastrojejunal anastomosis was then performed using EndoGIA stapler with 30 mm courtney cartridge. The common enterotomy was run closed with 3-0 PDS over 34 Cymro gastric lavage tube. After completing the closure, the loop of jejunum was stapled to the left side completing the anastomosis. The anastomosis was tested with methylene blue dye solution instilled through the gastric tube. No leak was identified. The tube was removed. The jejunum was measured out to create a 75 cm Tony limb. A functional end-to- side jejunojejunostomy was created with a 60 mm courtney MIA stapler. Again, the enterotomy was run closed with 3-0 PDS running it to and fro, tying it upon itself. The mesenteric defect was then closed with interrupted 3-0 silks in a [id number] fashion. After assuring hemostasis, the Matthieu liver retractor and ports were removed. Carbon dioxide was released. The skin incisions were closed with 4-0 Monocryl in subcuticular fashion. DermaFlex was applied. The patient tolerated the procedure well, was extubated and transferred to Recovery stable. [id number]/[facility] #: [id number] [facility] CENTERKassy
[2019-11-08] MEDS: Famotidine IV* 10 MG/ML 2 ML (20 mg) IV SLOW PU SCH (22:50)
[2019-11-09] MEDS: Ketorolac INJ* 30 MG/ML 1 ML VIAL IV SCH ×4 (00:30→17:48)
[2019-11-09] MEDS: Metoprolol Tartrate IV* 1 MG/ML 5 ML VIAL IV SCH ×4 (00:39→20:00)
[2019-11-09] MEDS: Lactated Ringers 1000 ML Bag* 1,000 ML IV SCH (04:09)
[2019-11-09] MEDS: HYDROmorphone INJ1* 1 MG/ML SYRINGE IV SLOW PU PRN ×3 (04:23→21:23)
[2019-11-09] MEDS: Heparin VIAL(*) 5000 UNITS/ML VIAL (FIVE THOUSAND) SUBCUT SCH ×3 (06:04→21:31)
[2019-11-09] MEDS ORDERED: Pneumococcal *Vac Polyvalent 0.5 ML VIAL IM ONE (09:00)
--- NOTE | 2019-11-09 09:23 | PN ---
Progress Note - Progress Note Date of Service: 11/09/19 SOAP: Subjective: Reports good pain control. No N/V. Wants to drink. Objective: Vital Signs Temp 98.1 F 11/09/19 07:20 Pulse 64 11/09/19 07:20 Resp 17 11/09/19 07:27 BP 125/72 11/09/19 07:20 Pulse Ox 100 11/09/19 07:20 Gen: NAD Abd: incisions c/d/i; no erythema; soft and min tender Intake & Output 11/08/19 11/09/19 11/09/19 18:59 06:59 18:59 Intake Total 80 1960 Output Total 200 925 Balance -120 1035 Weight 270 lb Intake: IV Fluids 50 1960 CLINDAMYCIN 900 MG 50 LR 1960 Oral 30 0 Output: Urine 200 925 Other: # Bowel Movements 0 Assessment: POD#1 s/p LRYGB. Doing well. Plan: Adv diet. Amb. Home likely in am.
[2019-11-09] MEDS: Famotidine IV* 10 MG/ML 2 ML (20 mg) IV SLOW PU SCH ×2 (10:05→21:34)
[2019-11-09] MEDS: D5W 1/2 NS KCl 20 Meq 1000 ML* 1,000 ML IV SCH ×2 (11:45→19:54)
[2019-11-09] MEDS: HYDROcodone/ACET. 7.5/325 LIQ* 15 ML UDC PO PRN (14:34)
[2019-11-10] MEDS: Ketorolac INJ* 30 MG/ML 1 ML VIAL IV SCH ×3 (00:10→11:58)
[2019-11-10] MEDS: Metoprolol Tartrate IV* 1 MG/ML 5 ML VIAL IV SCH (02:42)
[2019-11-10] MEDS: D5W 1/2 NS KCl 20 Meq 1000 ML* 1,000 ML IV SCH (04:59)
[2019-11-10] MEDS: Heparin VIAL(*) 5000 UNITS/ML VIAL (FIVE THOUSAND) SUBCUT SCH (06:04)
[2019-11-10 08:23] VITALS: BP 119/65
[2019-11-10] MEDS ORDERED: DULoxetine DR CAP* 60 MG CAP.DR PO SCH (09:00)
[2019-11-10] MEDS ORDERED: Metoprolol Succinate XL TAB* 25 MG PO SCH (09:00)
[2019-11-10] MEDS ORDERED: CMC:Solifenacin(NF) 5 MG TAB PO SCH (09:00)
--- NOTE | 2019-11-10 10:42 | PN ---
Progress Note - Progress Note Date of Service: 11/10/19 Note: S: POD#2. Doing well. Had some pain last night, but overall well controlled. Flori alex clears, up to 4 30ml cups per hr this am. Passing flatus. Ambulating. O: Vital Signs - 8 hr 11/10/19 11/10/19 03:32 08:22 Temperature 97.9 F 97.7 F Pulse Rate 56 57 Respiratory 17 16 Rate Blood Pressure 110/64 119/65 (mmHg) O2 Sat by Pulse 98 100 Oximetry Intake and Output Last 24 Hours 11/08/19 11/09/19 11/10/19 11/11/19 06:59 06:59 06:59 06:59 Intake Total 0 3947 Output Total 1125 2700 700 Balance 915 1247 -700 Weight 270 lb Intake: IV Fluids 2009 2957 CLINDAMYCIN 900 MG 50 D5W 1/2 NS 20 meq KCL 1967 LR 1960 990 Oral 30 990 Output: Urine 1125 2700 700 Other: # Bowel Movements 0 Gen: appears well; NAD Heart: reg Lungs: clear Abd: lap sites ok; soft; mild incisional tenderness only A: s/p lap gastric bypass, doing well P: ok for d/c home today; instructions reviewed.
[2019-11-10] MEDS: HYDROcodone/ACET. 7.5/325 LIQ* 15 ML UDC PO PRN (10:48)
[2019-11-10] MEDS: Famotidine IV* 10 MG/ML 2 ML (20 mg) IV SLOW PU SCH (10:49)
--- NOTE | 2019-11-10 14:50 | DS ---
CC: Ady Amador; [facility] * DATE OF ADMISSION: 11/08/2019. DATE OF DISCHARGE: 11/10/2019. ATTENDING SURGEON: Dr. Contreras Jimenez * (JAVY Uriostegui dictating). HOSPITAL COURSE: Please refer to admission history and physical and operative note for details. The patient was taken to the operating room on 11/08/2019 at which time she underwent laparoscopic Tony-en-Y gastric bypass with Dr. Jimenez. The surgery itself was uneventful and her postoperative course has followed a predictable pattern with gradual improvement in pain and tolerance of bariatric clear liquids. She was deemed ready for discharge the morning of 11/10/2019. See separate progress note from the same date. IMPRESSION: Status post laparoscopic Tony-en-Y gastric bypass for morbid obesity, doing well. PLAN: She is discharged to home today in good condition. She will resume her usual home medications. Instructions were reviewed regarding wound care, activity, and diet. She has an appointment at [facility], [facility], next week. JAVY URIOSTEGUI [id number]/[facility] #: [id number] [facility] HOSPITALKassy
[2019-11-11] MEDS ORDERED: Scopolamine PATCH Remove* 1 NOTE MISC PATCH OFF ONE (11:10)
== END 2019-11-10 12:07 | disposition home or self-care (01) | DRG 403 ==
LOC: AA 07:19 → SSU 12:20 → EEVIPCON 12:30
PROVIDERS: ADMIT Surgery; ATTEND Surgery
PROC: 0D164ZA Bypass Stomach to Jejunum, Percutaneous Endoscopic Approach (ICD-10-PCS; principal; 2019-11-08 09:15)
DX: E66.01 Morbid (severe) obesity due to excess calories (principal); Z68.41 Body mass index [BMI] 40.0-44.9, adult; I10 Essential (primary) hypertension; E78.5 Hyperlipidemia, unspecified; K21.9 Gastro-esophageal reflux disease without esophagitis; J45.909 Unspecified asthma, uncomplicated; F41.9 Anxiety disorder, unspecified; F32.9 Major depressive disorder, single episode, unspecified; E78.00 Pure hypercholesterolemia, unspecified; M17.9 Osteoarthritis of knee, unspecified; F43.29 Adjustment disorder with other symptoms; I34.1 Nonrheumatic mitral (valve) prolapse; K44.9 Diaphragmatic hernia without obstruction or gangrene; Z88.1 Allergy status to other antibiotic agents
CPT/HCPCS: 43644; 90732; A9270-GY; C1776; J0461; J1100; J1170; J1644; J1885; J2250; J2405; J2704; J2710; J2765; J3010; J3490

== ENCOUNTER 2019-11-14 13:05 | Emergency (ER) | payer BC ==
--- NOTE | 2019-11-14 13:50 | ED ---
Complex/Multi-Sys Presentation - HPI Summary HPI Summary: 54 year old F arriving via private car with family members complains of worsening abdominal pain, difficulty breathing, and elevated HR since today . Had Tony-en-Y on 11/08/[address] Jimenez. Had abdominal bloating and lower abdominal pressure yesterday 11/12 AM. Hadn't had bowel movement since surgery up until yesterday. Took magnesium sulfate yesterday because she felt like she needed to have bowel movement. Had loose stools yesterday which alleviated the abdominal pressure. Today 11/13 patient having abdominal bloating in her upper abdomen. Complaining of tachycardia, difficulty breathing, abdominal pain. Symptoms rated 6/10 in severity. Symptoms aggravated by deep inspiration. Symptoms alleviated by magnesium sulfate. PMHx reviewed. Hx venous stasis. FHx DVT and PE. - History Of Current Complaint Chief Complaint: EDShortnessOfBreath Time Seen by Provider: 11/14/19 13:40 Hx Obtained From: Patient Onset/Duration: Lasting Hours, Still Present Timing: Constant Severity Currently: Moderate - 6/10 Aggravating Factor(s): deep inspiration Alleviating Factor(s): magnesium sulfate - Allergies/Home Medications Allergies/Adverse Reactions: Allergies Allergy/AdvReac Type Severity Reaction Status Date / Time cephalexin [From Keflex] Allergy Intermediate Hives Verified 11/14/19 13:14 seasonal allergies Allergy Unknown Uncoded 11/08/19 08:15 Reaction Details Home Medications: Home Medications Cannabidiol (CBD) Extract (NF) [Epidiolex (NF)] 20 mg SL TID 11/14/19 [History Confirmed 11/14/19] PMH/Surg Hx/FS Hx/Imm Hx Endocrine/Hematology History: Denies: Hx Blood Disorders, Hx Diabetes Cardiovascular History: Reports: Hx Hypertension - ON MEDICATION FOR, Other Cardiovascular Problems/Disorders - HX OF PALPITATIONS Denies: Hx Coronary Artery Disease, Hx Deep Vein Thrombosis, Hx Embolism, Hx Pacemaker/ICD Respiratory History: Reports: Hx Asthma - PRN INHALERS Denies: Other Respiratory Problems/Disorders GI History: Reports: Hx Gastroesophageal Reflux Disease - OCCASIONALLY-NO MEDICATION FOR Denies: Other GI Disorders History: Denies: Hx Renal Disease, Other Problems/Disorders Musculoskeletal History: Reports: Hx Arthritis - KNEES Sensory History: Reports: Hx Contacts or Glasses - GLASSES Denies: Hx Hearing Aid Opthamlomology History: Reports: Hx Contacts or Glasses - GLASSES Neurological History: Denies: Other Neuro Impairments/Disorders Psychiatric History: Reports: Hx Anxiety - ROUTINE AND PRN MEDICATION FOR, Hx Depression - ROUTINE MEDICATION FOR Denies: Hx Panic Disorder, Other Psychiatric Issues/Disorders - Surgical History Surgery Procedure, Year, and Place: Tony-en-Y on 11/08/19. uterine ablation- 2006. ERCP. gallbladder 2009. 2 [id number], 1995. VEIN "STRIPPING- SOLANGE - VARICOSE VEINS Hx Anesthesia Reactions: Yes - WOKE UP DURING ERCP, "TAKES A LITTLE LONGER TO FEEL EFFECTS OF ANESTHESIA" Infectious Disease History: No Infectious Disease History: Denies: Hx Clostridium Difficile, Hx Hepatitis, Hx Human Immunodeficiency Virus (HIV), Hx of Known/Suspected MRSA, Hx Shingles, Hx Tuberculosis, Hx Known/ Suspected VRE, Hx Known/Suspected VRSA, History Other Infectious Disease, Traveled Outside the [place] in Last 30 Days - Family History Known Family History: Negative: Cardiac Disease, Hypertension - Social History Alcohol Use: None Hx Substance Use: No Substance Use Type: Reports: None Hx Tobacco Use: No Smoking Status (MU): Never Smoked Tobacco Have You Smoked in the Last Year: No Review of Systems Positive: Other - elevated HR Positive: Other - difficulty breathing Positive: Abdominal Pain All Other Systems Reviewed And Are Negative: Yes Physical Exam - Summary Physical Exam Summary: Constitutional: Well-developed, Well-nourished, Alert. (-) Distressed Skin: Warm, Dry HENT: Normocephalic; Atraumatic Eyes: Conjunctiva normal Neck: Musculoskeletal ROM normal neck. (-) JVD, (-) Stridor, (-) Nuchal rigidity Cardio: Rhythm regular, rate normal, Heart sounds normal; Intact distal pulses; Radial pulses are 2+ and symmetric. (-) Murmur Pulmonary/Chest wall: Effort normal. (-) Respiratory distress, (-) Wheezes, (-) Rales Abd: Soft, (-) Distension, (-) Guarding, (-) Rebound, well healing abdominal scars, old healed midline scar, epigastric tenderness Musculoskeletal: (-) Edema Lymph: (-) Cervical adenopathy Neuro: Alert, Oriented x3 Psych: Mood and affect Normal Triage Information Reviewed: Yes Vital Signs On Initial Exam: Initial Vitals Temp Pulse Resp BP Pulse Ox 97.7 F 118 18 121/97 98 11/14/19 13:07 11/14/19 13:07 11/14/19 13:07 11/14/19 13:07 11/14/19 13:07 Vital Signs Reviewed: Yes Procedures - Sedation Patient Received Moderate/Deep Sedation with Procedure: No Diagnostics - Vital Signs Vital Signs Temp Pulse Resp BP Pulse Ox 11/14/19 13:07 97.7 F 118 18 121/97 98 - Laboratory Result Diagrams: 11/14/19 14:12 11/14/19 14:12 Lab Statement: Any lab studies that have been ordered have been reviewed, and results considered in the medical decision making process. - CT CHEST/ABD/PEL CTA CT Interpretation Completed By: Radiologist Summary of CT Findings: No definite pulmonary embolus is noted. No evidence of aortic dissection is noted. Patient status post gastric bypass surgery with Tony-en-Y. There is air in the distal stomach in the excluded portion of the gastric remnant. No contrast is noted however gastric fistula is not excluded. ED PHYSICIAN HAS REVIEWED THIS REPORT. - EKG 1351 Cardiac Rate: NL - 92 BPM EKG Rhythm: Sinus Rhythm Summary of EKG Findings: An EKG at 13:51 reveals normal sinus rhythm 92 BPM, nml axis, nml intervals. No STEMI. No acute changes. No change from prior from 2013. ED physician has reviewed and interpreted this EKG. Re-Evaluation - Re-Evaluation First Eval Re-Evaluation Time: 16:51 Change: Improved Comment: patient feeling much better, HR dec w IVF Complex Multi-Symp Course/Dx Course Of Treatment: 54 y/o F with recent gastric bypass p/w abdominal pain, SOB. - Shortness of breath ddx: Most likely 2/2 pain from surgery. Also consider: COPD exacerbation/asthma - no h/o COPD, no wheezing on exam. Low suspicion. PNA - no sputum production, no fevers or chills. No leukocytosis. CT w/o infiltrate. PTX - breath sounds equal, no risk factors for PTX, CXR w/o e/o PTX. ACS - no CP, no EKG changes, initial trop not elevated. Low suspicion. CHF - no h/o CHF, no GALVAN or orthopnea, no BLE edema. PE - neg CTA. Regarding post operative abdominal pain, d/w operations support coordinator surgery who recommended CT a/p. CT w/o abnormality. Tolerating PO. Feeling better after IVF. - Diagnoses Provider Diagnoses: Shortness of breath, Abdominal pain - Physician Notifications Discussed Care Of Patient With: Bobby South Time Discussed With Above Provider: 13:50 Instructed by Provider To: Other - Dr. South surgery requesting CT Abd/Pel/ Chest. 1605 Dr. South recommends giving IV fluids and discharging patient home with prescription for omeprazole. Discharge ED - Sign-Out/Discharge Documenting (check all that apply): Patient Departure - Discharge Plan Condition: Stable Disposition: HOME Patient Education Materials: Acute Abdominal Pain (ED), Shortness of Breath (ED ) Referrals: Ld Lopez MD [Primary Care Provider] - Additional Instructions: You were seen in the emergency department for postoperative abdominal pain or shortness of breath. Your CT scan did not show any cause for shortness of breath, or your pain. We discussed her case with on-call surgeon who recommends you follow-up in the outpatient office. If any studies were not completed at the time of discharge you will be called with the relevant results. Please follow up with your primary care doctor in next 2-3 days and return to emergency department for worsening pain, fevers, abdominal pain, trouble breathing, chest pain or concerning symptoms. It was a pleasure taking care of you today. - Billing Disposition and Condition Condition: STABLE Disposition: Home - Attestation Statements Document Initiated by Prabhjot: Yes Documenting Scribe: Gabriella Garza Provider For Whom Prabhjot is Documenting (Include Credential): Migue Hoffman MD Scribe Attestation: IGabriella, scribed for Migue Hoffman MD on 11/14/19 at 1718. Scribe Documentation Reviewed: Yes Provider Attestation: The documentation as recorded by the Gabriella farley accurately reflects the service I personally performed and the decisions made by , Migue Hoffman MD Status of Scribe Document: Viewed
[2019-11-14 14:24] LABS: ABS Eosinophils 0.1 10^3/ul (0-0.6); ABS Lymphocytes 1.2 10^3/ul (1.0-4.8); ABS Monocytes 0.6 10^3/ul (0-0.8); ABS Neutrophils 6.1 10^3/ul (1.5-7.7); Eosinophil % 1.4 %; Hematocrit 44 % (35-47); Hemoglobin 14.8 g/dL (12.0-16.0); Lymphocyte % 15.4 %; Mean Corpuscular HGB Conc 34 g/dL (31-36); Mean Corpuscular Hemoglobin 31 pg (27-31); Mean Corpuscular Volume 91 fL (80-97); Mean Platelet Volume 8.6 fL (7.4-10.4); Platelet Count 246 10^3/uL (150-450); Red Cell Distribution Width 13 % (10-15); White Blood Count 8.1 10^3/uL (3.5-10.8)
[2019-11-14 14:40] LABS: Albumin 4.5 g/dL (3.2-5.2); Albumin/Globulin Ratio 1.7 (1-3); BUN/Creatinine Ratio 16.5 (8-20); Calcium 9.4 mg/dL (8.6-10.3); EGFR African American 91.4 (>60); EGFR Non-African American 75.6 (>60); Globulin 2.6 g/dL (2-4); Potassium 4.3 mmol/L (3.5-5.0); Total Bilirubin 0.5 mg/dL (0.2-1.0); Total Protein 7.1 g/dL (6.4-8.9)
[2019-11-14] MEDS ORDERED: Iohexol 350* (CONTRAST) 500 ML MDV IV ONE (15:20)
[2019-11-14] MEDS ORDERED: Omeprazole CAP (NF) 20 MG CAP.DR PO ONE (16:08)
[2019-11-14] MEDS ORDERED: NS 0.9% 1000 ML** 1,000 ML IV ONE (16:08)
[2019-11-14] MEDS ORDERED: Pantoprazole TAB * 40 MG TAB PO ONE (17:00)
[2019-11-14 17:18] VITALS: BP 131/77
== END 2019-11-14 17:11 | disposition home or self-care (01) ==
LOC: ED 13:05
DX: R10.9 Unspecified abdominal pain (principal); R06.02 Shortness of breath; Z88.1 Allergy status to other antibiotic agents; I10 Essential (primary) hypertension; J45.909 Unspecified asthma, uncomplicated; K21.9 Gastro-esophageal reflux disease without esophagitis; F41.9 Anxiety disorder, unspecified; F32.9 Major depressive disorder, single episode, unspecified
CPT/HCPCS: 36415; 71275; 74177; 80053; 84484; 85025; 93005; 96360; 99283; A9270-GY; Q9967